=== PATIENT | female | born 1955 | race Caucasian/White ===

== ENCOUNTER → 2017-02-19 | Outpatient (CLI) | payer BC ==
--- NOTE | 2017-02-19 13:57 | MM ---
Reason for exam: screening (asymptomatic). Last mammogram was performed 1 year and 2 months ago. History: Patient is postmenopausal and had first child at age 36. Physical Findings: A clinical breast exam by your physician is recommended on an annual basis and results should be correlated with mammographic findings. MG 3D Screening Mammo W/Cad Bilateral CC and MLO view(s) were taken. Prior study comparison: December 12, 2015, left breast MG work up mamm w CAD LT. November 29, 2015, bilateral MG screening mammo w CAD. The breast tissue is heterogeneously dense. This may lower the sensitivity of mammography. There is no discrete abnormality. No significant changes when compared with prior studies. ASSESSMENT: Benign, BI-RAD 2 RECOMMENDATION: Routine screening mammogram of both breasts in 1 year.
--- NOTE | 2017-02-19 16:56 | BD ---
EXAMINATION TYPE: MG DEXA axial skeleton. DATE OF EXAM: 02/19/2017 CLINICAL HISTORY: 61-year-old female disorder of bone Height: 65.5 Weight: 222 FRAX RISK QUESTIONS: Alcohol (3 or more units per day): no Family History (Parent hip fracture): mother broke pelvis but may have been a complication of CA Glucocorticoids (More than 3mos): as needed-inhaler (Ex: prednisone, prednisolone, methylprednisolone, dexamethasone, and hydrocortisone). History of Fracture in Adulthood: no Secondary Osteoporosis: 1. Type 1 Diabetes: no 2. Hyperthyroidism: no 3. Menopause before 45: no 4. Malnutrition: no 5. Chronic liver disease: no Rheumatoid Arthritis: no, osteoarthritis Current Tobacco Use: yes RISK FACTORS HISTORY OF: Hip Fracture (Right/Left): no Spine Fracture: no History of Wrist Fracture: yes When: at about age 13 Surgery to Spine/Hip(right/left)/Wrist (right/left): no Family History of Osteoporosis: yes; mother & sister Active: yes Diet low in dairy products/other sources of calcium: no Postmenopausal woman: yes Take estrogen and/or progesterone medications: no Lost more than 2 inches in height since high school: no Frequent falls: no Poor Health: no Hyperparathyroidism: no Adrenal Insufficiency: no MEDICATIONS: Prednisone or other steroids: yes, as needed How lon-4 years on & off Thyroid Medications: no Osteoporosis Medications: no Additional Medications: blood pressure meds, cholesterol meds, meds for diabetes , glaucoma eye drops , Ventolin Additional History: type 2 diabetic, glaucoma EXAM MEASUREMENTS: Bone mineral densitometry was performed using the [employer] System. Bone mineral density as measured about the Lumbar spine is: ----- L1-L4(G/cm2): 1.092 T Score Values are as follows: ----- L2: -1.8 ----- L3: -0.9 ----- L4: 0.1 ----- L1-L4: -0.7 Bone mineral density has: Decreased -1.5% since study of: 06/09/2014 Bone mineral density about the R hip (g/cm2): 0.944 Bone mineral density about the L hip (g/cm2): 0.942 T Score values are as follows: -----R Neck: -0.7 -----L Neck: -0.7 -----R Total: -0.4 -----L Total: 0.0 Bone mineral density has: Decreased -2.7% since study of: 06/09/2014 IMPRESSION: Osteopenia (T Score between -2.5 and -1 as noted by T score values There is slightly increased risk of fracture and the patient may be considered for treatment. Re-Screen 2-5 years. NOTE: T-SCORE=SD OF THE YOUNG ADULT MEAN.
== END | disposition home or self-care (01) ==
LOC: RADMAMWWP 08:13
PROVIDERS: ATTEND Obstetrics & Gynecology
DX: Z12.31 Encounter for screening mammogram for malignant neoplasm of breast (principal); M85.80 Other specified disorders of bone density and structure, unspecified site
CPT/HCPCS: 77080; 77063; G0202

== ENCOUNTER → 2017-11-15 | Outpatient (CLI) | payer BC ==
--- NOTE | 2017-11-15 13:42 | MR ---
EXAMINATION TYPE: MR shoulder RT wo con DATE OF EXAM: 11/15/2017 COMPARISON: Outside right shoulder x-ray from yesterday. HISTORY: Right shoulder pain TECHNIQUE: Multiplanar, multisequence imaging of the right shoulder is performed without contrast. FINDINGS: Patient had claustrophobia and could not complete entire shoulder sequence for diagnostic e valuation. Long head of biceps is noted within bicipital groove. There is fairly moderate to large glenohumeral joint effusion. There is additional more prominent fluid anteriorly. Glenohumeral joint is preserved. There is subchondral cystic change in the superolateral humeral head. There is suspected increased s ignal and at least partial tear of the distal supraspinatus and infraspinatus tendons. Full-thickness tear of supraspinatus tendon most likely is present. There appears to be some mild muscular atrophy. There is mild to moderate AC joint space loss. IMPRESSION: As above, incomplete nondiagnostic study. Advise repeat study with sedation if necessary.
== END ==
LOC: RADMRIMAIN 12:36
PROVIDERS: ATTEND Orthopaedic Surgery
DX: M25.511 Pain in right shoulder (principal); F40.240 Claustrophobia; Z53.29 Procedure and treatment not carried out because of patient's decision for other reasons

== ENCOUNTER 2018-03-07 23:23 | Observation (INO) | payer BC ==
[2018-03-07] MEDS ORDERED: SODIUM CHLORIDE 0.9% 1,000 ML IV ONE (23:51)
[2018-03-07] MEDS ORDERED: MORPHINE SULFATE 4 MG/ML SYRINGE IVP STA (23:51)
[2018-03-07] MEDS ORDERED: SODIUM CHLORIDE 0.9% 1,000 ML IV STA (23:51)
--- NOTE | 2018-03-08 00:03 | ED ---
General Adult HPI - General Chief complaint: Abdominal Pain Stated complaint: Abdominal Pain Time Seen by Provider: 03/07/18 23:49 Source: patient, RN notes reviewed, old records reviewed Mode of arrival: ambulatory Limitations: no limitations - History of Present Illness Initial comments: 60-year-old female presenting for sudden onset left upper quadrant abdominal pain. Pain is sharp and severe tenderness 10. Began with cough. Patient has somewhat limited history secondary to extreme pain. Denies preceding vomiting or diarrhea. Denies fever or chills. Pain is been present for the past 30 minutes. - Related Data Home Medications Medication Instructions Recorded Confirmed Fenofibrate Nanocrystallized 145 mg PO DAILY 03/29/15 04/01/15 [Tricor] Ibuprofen [Motrin] 800 mg PO TID PRN 03/29/15 04/01/15 Metoprolol Tartrate 12.5 mg PO BID 03/29/15 04/01/15 Multivitamins, Thera [Theragran] 1 each PO DAILY 03/29/15 04/01/15 Rosuvastatin Calcium [Crestor] 40 mg PO HS 03/29/15 04/01/15 Valsartan/Hydrochlorothiazide 1 each PO 1000 03/29/15 04/01/15 [Diovan Hct 320-25 mg Tablet] Xalatan Eye Drop 1 drop BOTH EYES HS 03/29/15 04/01/15 metFORMIN HCL [Glucophage Xr] 2,000 mg PO 1000 03/29/15 04/01/15 Allergies Allergy/AdvReac Type Severity Reaction Status Date / Time ciprofloxacin [From Cipro] Allergy Rash/Hives Verified 03/07/18 23:28 ciprofloxacin HCl Allergy Rash/Hives Verified 03/07/18 23:28 [From Cipro] phenazopyridine HCl Allergy Rash/Hives Verified 03/07/18 23:28 [From Pyridium] stong pain medications Allergy Vomiting Uncoded 03/07/18 23:28 Review of Systems ROS Statement: Those systems with pertinent positive or pertinent negative responses have been documented in the HPI. ROS Other: All systems not noted in ROS Statement are negative. Past Medical History Past Medical History: Eye Disorder, Hyperlipidemia, Hypertension, Osteoarthritis (OA) Additional Past Medical History / Comment(s): glaucoma, migraines, chronic bronchitis, History of Any Multi-Drug Resistant Organisms: None Reported Past Surgical History: Orthopedic Surgery, Tonsillectomy, Tubal Ligation Additional Past Surgical History / Comment(s): kaitlynn foot surgery Past Anesthesia/Blood Transfusion Reactions: Motion Sickness Past Psychological History: Depression Smoking Status: Current every day smoker - Past Family History Mother Family Medical History: Cancer General Exam Limitations: no limitations General appearance: alert, in distress Head exam: Present: atraumatic, normocephalic Eye exam: Present: normal appearance, PERRL ENT exam: Present: normal exam Neck exam: Present: normal inspection. Absent: tenderness, meningismus Respiratory exam: Present: normal lung sounds bilaterally. Absent: respiratory distress, wheezes Cardiovascular Exam: Present: normal rhythm, tachycardia GI/Abdominal exam: Present: distended, tenderness, guarding, other (Tender mass left upper quadrant) Extremities exam: Present: normal inspection, normal capillary refill. Absent: pedal edema Neurological exam: Present: alert, oriented X3, CN II-XII intact. Absent: motor sensory deficit Skin exam: Present: warm, diaphoretic Course Vital Signs 03/07/18 03/08/18 23:24 00:26 Temperature 98.3 F Pulse Rate 150 H 112 H Respiratory 26 H 20 Rate Blood Pressure 171/100 166/65 O2 Sat by Pulse 98 94 L Oximetry - Reevaluation(s) Reevaluation #1: 03/08/18 00:01 Case discussed with surgery on-call Dr. Cantu Recommends awaiting computed tomography scan for further recommendations. 03/08/18 01:08 Case discussed with surgery on-call, recommended medical management, Reevaluation #2: 03/08/18 00:51 After pain medication patient's vital signs are improved, abdomen is reexamined , with the exception of tender left upper quadrant mass there is no rebound or guarding, abdomen is otherwise soft. EKG Findings - EKG Comments: EKG Findings:: EKG: Sinus tachycardia, possible left atrial enlargement, rate of 145, [place] interval 126, QRS duration 90, QTC 444 Medical Decision Making - Medical Decision Making 62-year-old female with severe abdominal pain and mass in the left upper quadrant. Initial suspicion is for incarcerated strangulated abdominal wall hernia. CT is obtained, this is negative for obstruction or anterior abdominal wall hernia, there is a 12 x 5 cm intramuscular hematoma. This is consistent with history. Patient's hemoglobin is stable. She is not anticoagulated. She does have significant pain even on reevaluation. She will be kept for pain management. Gen. surgery will be placed on consult. Patient will have repeat hemoglobin test in 6 hours. - Lab Data Result diagrams: 03/08/18 00:00 03/08/18 00:00 Lab Results 03/08/18 03/08/18 03/08/18 Range/Units 00:00 00:00 00:00 WBC 13.3 H (3.8-10.6) k/uL RBC 4.58 (3.80-5.40) m/uL Hgb 14.8 (11.4-16.0) gm/dL Hct 43.0 (34.0-46.0) % MCV 93.8 (80.0-100.0) fL MCH 32.2 (25.0-35.0) pg MCHC 34.4 (31.0-37.0) g/dL RDW 13.6 (11.5-15.5) % Plt Count 314 (150-450) k/uL PT 10.4 (9.0-12.0) sec INR 1.1 (<1.2) APTT 22.2 (22.0-30.0) sec Sodium 142 (137-145) mmol/L Potassium (3.5-5.1) mmol/L Chloride 103 (98-107) mmol/L Carbon Dioxide 25 (22-30) mmol/L Anion Gap 14 mmol/L BUN 25 H (7-17) mg/dL Creatinine 0.80 (0.52-1.04) mg/dL Est GFR (CKD-EPI)AfAm >90 (>60 ml/min/1.73 sqM) Est GFR (CKD-EPI)NonAf 80 (>60 ml/min/1.73 sqM) Glucose 146 H (74-99) mg/dL Calcium 10.5 H (8.4-10.2) mg/dL Total Bilirubin 0.5 (0.2-1.3) mg/dL AST 48 H (14-36) U/L ALT 47 (9-52) U/L Alkaline Phosphatase 41 (38-126) U/L Total Protein 7.6 (6.3-8.2) g/dL Albumin 4.9 (3.5-5.0) g/dL Amylase 109 (30-110) U/L Lipase 254 (23-300) U/L Blood Type Blood Type Recheck Antibody Screen Spec Expiration Date 03/08/18 Range/Units 00:00 WBC (3.8-10.6) k/uL RBC (3.80-5.40) m/uL Hgb (11.4-16.0) gm/dL Hct (34.0-46.0) % MCV (80.0-100.0) fL MCH (25.0-35.0) pg MCHC (31.0-37.0) g/dL RDW (11.5-15.5) % Plt Count (150-450) k/uL PT (9.0-12.0) sec INR (<1.2) APTT (22.0-30.0) sec Sodium (137-145) mmol/L Potassium (3.5-5.1) mmol/L Chloride (98-107) mmol/L Carbon Dioxide (22-30) mmol/L Anion Gap mmol/L BUN (7-17) mg/dL Creatinine (0.52-1.04) mg/dL Est GFR (CKD-EPI)AfAm (>60 ml/min/1.73 sqM) Est GFR (CKD-EPI)NonAf (>60 ml/min/1.73 sqM) Glucose (74-99) mg/dL Calcium (8.4-10.2) mg/dL Total Bilirubin (0.2-1.3) mg/dL AST (14-36) U/L ALT (9-52) U/L Alkaline Phosphatase (38-126) U/L Total Protein (6.3-8.2) g/dL Albumin (3.5-5.0) g/dL Amylase (30-110) U/L Lipase (23-300) U/L Blood Type A Positive Blood Type Recheck CABO Indicated Antibody Screen NEGATIVE Spec Expiration Date 03/11/2018 - 2300 Disposition Clinical Impression: Rectus sheath hematoma, Abdominal pain Disposition: ADMITTED IP TO THIS [facility] Referrals: Lenin Duran DO [Primary Care Provider] - 1-2 days Decision to Admit Reason: Admit from EC Decision Date: 03/08/18 Decision Time: 01:11
[2018-03-08 00:09] LABS: HGB 14.8 gm/dL (11.4-16.0); MCH 32.2 pg (25.0-35.0); MCHC 34.4 g/dL (31.0-37.0); MCV 93.8 fL (80.0-100.0); Mean Platelet Volume 7.7; Platelet Count 314 k/uL (150-450); RBC 4.58 m/uL (3.80-5.40); RDW 13.6 % (11.5-15.5); WBC 13.3 k/uL (3.8-10.6)
[2018-03-08 00:21] LABS: INR 1.1 (<1.2); Partial Thromboplastin Time 22.2 sec (22.0-30.0); Prothrombin Time 10.4 sec (9.0-12.0)
--- NOTE | 2018-03-08 00:22 | XR ---
EXAMINATION TYPE: XR abdomen acute w cxr DATE OF EXAM: 03/08/2018 COMPARISON: NONE HISTORY: Abdominal pain TECHNIQUE: Chest x-ray and supine and upright abdomen FINDINGS: There is no heart failure nor confluent pneumonic infiltrate. There is poor inspiration. There is no sign of intestinal obstruction or pneumoperitoneum. Fecal pattern is normal. Lung bases are clear. Th ere are no pathologic calcifications over the kidneys. IMPRESSION: Nonacute abdomen.
[2018-03-08 00:29] LABS: AST 48 U/L (14-36); Albumin 4.9 g/dL (3.5-5.0); Anion Gap 14 mmol/L; Blood Urea Nitrogen 25 mg/dL (7-17); Calcium 10.5 mg/dL (8.4-10.2); Carbon Dioxide 25 mmol/L (22-30); Chloride 103 mmol/L (98-107); Glucose 146 mg/dL (74-99); Sodium 142 mmol/L (137-145); Total Bilirubin 0.5 mg/dL (0.2-1.3); Total Protein 7.6 g/dL (6.3-8.2)
[2018-03-08 00:30] LABS: ALT 47 U/L (9-52); Alkaline Phosphatase 41 U/L (38-126); Amylase 109 U/L (30-110); Lipase 254 U/L (23-300)
--- NOTE | 2018-03-08 00:34 | CT ---
EXAMINATION TYPE: CT abdomen pelvis w con DATE OF EXAM: 03/08/2018 COMPARISON: None HISTORY: possible hernia strangulation CT DLP: 2444.70 mGycm Automated exposure control for dose reduction was used. TECHNIQUE: Helical acquisition of images was performed from the lung bases through the pelvis. CONTRAST: Performed without Oral Contrast and with IV Contrast, patient injected with 100 mL of Isovue 300. FINDINGS: Lung bases are clear. There is no pleural effusion. There is low-attenuation in the liver consistent with fatty infiltration. Bile ducts are not dilated. Spleen appears normal. There is no pancreatic ma ss. There is a 12 x 5 cm area of thickening of the anterior abdominal wall on the left side. This is cons istent with intramuscular hematoma. The length is 16 cm. There is no evidence of intraperitoneal hemorrhage. Gallbladder appears normal. There is no adrenal mass. Kidneys show satisfactory contrast opacification. There is no hydronephrosi s. There is no retroperitoneal adenopathy. There is no ascites. There is no intestinal wall thickenin g. There are no dilated loops. Bladder distends smoothly. There is no pelvic mass. Uterus is antevert ed. Lumbar spine is intact. Abdominal aorta is atheromatous. Appendix is not seen. There is no sign o f appendicitis. IMPRESSION: THICKENING OF THE ANTERIOR ABDOMINAL WALL CONSISTENT WITH ACUTE INTRAMUSCULAR HEMATOMA. FATTY INFILTR ATION OF THE LIVER. NO EVIDENCE OF A BOWEL OBSTRUCTION. SMALL UMBILICAL HERNIA CONTAINS FAT.
[2018-03-08] MEDS ORDERED: HYDROmorphone 0.5 MG/0.5 ML SYRINGE IVP STA (00:59)
[2018-03-08] MEDS ORDERED: SODIUM CHLORIDE 0.9% 500 ML IV ONE (00:59)
[2018-03-08] MEDS ORDERED: ONDANSETRON 4 MG/2 ML VIAL IVP PRN (01:06)
[2018-03-08] MEDS ORDERED: ACETAMINOPHEN TAB 325 MG TAB PO PRN (01:06)
[2018-03-08] MEDS ORDERED: NALOXONE 0.4 MG/ML 1 ML VIAL IV PRN (01:06)
[2018-03-08] MEDS ORDERED: HYDROmorphone 1 MG/ML 1 ML SYRINGE IVP PRN ×2 (01:06)
[2018-03-08 01:23] LABS: Band Neutrophils % 1 %; Lymphocytes # (M) 4.39 k/uL (1.0-4.8); Neutrophils % (M) 51 %; Nucleated Red Blood Cells 0 /100 WBC (0-0); Total Cells Counted 100
[2018-03-08 02:42] VITALS: BMI 41.7
[2018-03-08 07:37] LABS: Glucose,Whole Blood 178 mg/dL (75-99)
[2018-03-08] MEDS: PANTOPRAZOLE 40 MG/10 ML VIAL IVP SCH (08:09)
[2018-03-08] MEDS: metFORMIN 500 MG TAB PO SCH ×2 (08:12→21:52)
[2018-03-08] MEDS: METOPROLOL TARTRATE 12.5 MG TAB PO SCH ×2 (08:12→21:52)
[2018-03-08] MEDS: FENOFIBRATE 160 MG TAB PO SCH (08:13)
--- NOTE | 2018-03-08 09:07 | P.GSCN ---
History of Present Illness Consult date: 03/08/18 Reason for Consult: Umbilical hernia, rectus sheath hematoma History of present illness: This is a 62-year-old female who was admitted through the emergency room with complaints of severe abdominal pain. Patient has a chronic umbilical hernia. Patient's workup found have evidence of a rectus sheath hematoma. Patient states that she had a coughing spell prior to her abdominal pain. CAT scan performed shows evidence of rectus sheath hematoma. There is no evidence of bowel obstruction. Past Medical History Past Medical History: Eye Disorder, Hyperlipidemia, Hypertension, Osteoarthritis (OA) Additional Past Medical History / Comment(s): glaucoma, migraines, chronic bronchitis, History of Any Multi-Drug Resistant Organisms: None Reported Past Surgical History: Orthopedic Surgery, Tonsillectomy, Tubal Ligation Additional Past Surgical History / Comment(s): kaitlynn foot surgery Past Anesthesia/Blood Transfusion Reactions: Motion Sickness Past Psychological History: Depression Smoking Status: Current every day smoker Past Alcohol Use History: Occasional Past Drug Use History: None Reported - Past Family History Mother Family Medical History: Cancer Medications and Allergies Home Medications Medication Instructions Recorded Confirmed Type Fenofibrate Nanocrystallized 145 mg PO DAILY 03/29/15 04/01/15 History [Tricor] Ibuprofen [Motrin] 800 mg PO TID PRN 03/29/15 04/01/15 History Metoprolol Tartrate 12.5 mg PO BID 03/29/15 04/01/15 History Multivitamins, Thera [Theragran] 1 each PO DAILY 03/29/15 04/01/15 History Rosuvastatin Calcium [Crestor] 40 mg PO HS 03/29/15 04/01/15 History Valsartan/Hydrochlorothiazide 1 each PO 1000 03/29/15 04/01/15 History [Diovan Hct 320-25 mg Tablet] Xalatan Eye Drop 1 drop BOTH EYES HS 03/29/15 04/01/15 History metFORMIN HCL [Glucophage Xr] 2,000 mg PO 1000 03/29/15 04/01/15 History Allergies Allergy/AdvReac Type Severity Reaction Status Date / Time ciprofloxacin [From Cipro] Allergy Rash/Hives Verified 03/07/18 23:28 ciprofloxacin HCl Allergy Rash/Hives Verified 03/07/18 23:28 [From Cipro] phenazopyridine HCl Allergy Rash/Hives Verified 03/07/18 23:28 [From Pyridium] stong pain medications Allergy Vomiting Uncoded 03/07/18 23:28 Surgical - Exam Vital Signs Temp Pulse Resp BP Pulse Ox 98.3 F 150 H 26 H 171/100 98 03/07/18 23:24 03/07/18 23:24 03/07/18 23:24 03/07/18 23:24 03/07/18 23:24 - General well developed, no distress - Eyes PERRL - ENT normal pinna - Neck no masses - Respiratory normal expansion - Cardiovascular Rhythm: regular - Abdomen Mild abdominal tenderness. There is a reducible umbilical hernia. Abdomen: soft Results - Labs 03/08/18 00:00 03/08/18 00:00 Abnormal Lab Results - Last 24 Hours (Table) 03/08/18 03/08/18 03/08/18 Range/Units 00:00 00:00 07:32 WBC 13.3 H (3.8-10.6) k/uL Monocytes # (Manual) 1.60 H (0-1.0) k/uL BUN 25 H (7-17) mg/dL Glucose 146 H (74-99) mg/dL POC Glucose (mg/dL) 178 H (75-99) mg/dL Calcium 10.5 H (8.4-10.2) mg/dL AST 48 H (14-36) U/L Diabetes panel 03/08/18 Range/Units 00:00 Sodium 142 (137-145) mmol/L Potassium (3.5-5.1) mmol/L Chloride 103 (98-107) mmol/L Carbon Dioxide 25 (22-30) mmol/L BUN 25 H (7-17) mg/dL Creatinine 0.80 (0.52-1.04) mg/dL Glucose 146 H (74-99) mg/dL Calcium 10.5 H (8.4-10.2) mg/dL AST 48 H (14-36) U/L ALT 47 (9-52) U/L Alkaline Phosphatase 41 (38-126) U/L Total Protein 7.6 (6.3-8.2) g/dL Albumin 4.9 (3.5-5.0) g/dL Calcium panel 03/08/18 Range/Units 00:00 Calcium 10.5 H (8.4-10.2) mg/dL Albumin 4.9 (3.5-5.0) g/dL Pituitary panel 03/08/18 Range/Units 00:00 Sodium 142 (137-145) mmol/L Potassium (3.5-5.1) mmol/L Chloride 103 (98-107) mmol/L Carbon Dioxide 25 (22-30) mmol/L BUN 25 H (7-17) mg/dL Creatinine 0.80 (0.52-1.04) mg/dL Glucose 146 H (74-99) mg/dL Calcium 10.5 H (8.4-10.2) mg/dL Adrenal panel 03/08/18 Range/Units 00:00 Sodium 142 (137-145) mmol/L Potassium (3.5-5.1) mmol/L Chloride 103 (98-107) mmol/L Carbon Dioxide 25 (22-30) mmol/L BUN 25 H (7-17) mg/dL Creatinine 0.80 (0.52-1.04) mg/dL Glucose 146 H (74-99) mg/dL Calcium 10.5 H (8.4-10.2) mg/dL Total Bilirubin 0.5 (0.2-1.3) mg/dL AST 48 H (14-36) U/L ALT 47 (9-52) U/L Alkaline Phosphatase 41 (38-126) U/L Total Protein 7.6 (6.3-8.2) g/dL Albumin 4.9 (3.5-5.0) g/dL Assessment and Plan Assessment: Abdominal wall/rectus sheath hematoma. Patient will be medically managed. Her umbilical hernia will be repaired as an outpatient electively.
[2018-03-08 11:48] LABS: Glucose,Whole Blood 131 mg/dL (75-99)
[2018-03-08 12:42] LABS: Hemoglobin A1C 7.4 % (4.0-6.0)
[2018-03-08] MEDS: INSULIN ASPART 100 UNIT/ML 1 ML 10 ML VIAL SQ SCH ×3 (13:09→21:24)
[2018-03-08] MEDS: ALBUTEROL NEBULIZED 2.5 MG/3 ML INHALATION SCH ×2 (15:45→19:30)
[2018-03-08] MEDS: guaiFENesin-DM 100-10MG/5ML 10 ML CUP PO PRN (15:47)
[2018-03-08] MEDS: SODIUM CHLORIDE 0.9% 1,000 ML IV SCH (15:48)
[2018-03-08 16:01] LABS: Basophils # (A) 0.1 k/uL (0-0.2); Basophils % (A) 0 %; Eosinophils # (A) 0.2 k/uL (0-0.7); Eosinophils % (A) 2 %; Lymphocytes # (A) 2.3 k/uL (1.0-4.8); Lymphocytes % (A) 22 %; MCH 31.8 pg (25.0-35.0); MCHC 33.4 g/dL (31.0-37.0); MCV 95.2 fL (80.0-100.0); Mean Platelet Volume 7.5; Monocytes # (A) 0.5 k/uL (0-1.0); Monocytes % (A) 5 %; Neutrophils # (A) 7.4 k/uL (1.3-7.7); Neutrophils % (A) 69 %; Platelet Count 218 k/uL (150-450); RBC 3.68 m/uL (3.80-5.40); RDW 13.8 % (11.5-15.5); WBC 10.6 k/uL (3.8-10.6)
[2018-03-08 16:03] LABS: HGB 11.7 gm/dL (11.4-16.0)
[2018-03-08 16:57] LABS: Glucose,Whole Blood 143 mg/dL (75-99)
--- NOTE | 2018-03-08 18:40 | CONS ---
CONSULTATION DATE OF SERVICE: 03/08/2018. IDENTIFYING DATA: This patient is a 62-year-old who was admitted to the hospital with a rectus sheath hematoma. I am asked to evaluate for suicidal ideation. HISTORY OF PRESENT ILLNESS: The patient presented with acute abdominal pain after having severe coughing. She was evaluated in the emergency room and by Surgery. She has an existing abdominal hernia and now was found to have a rectus sheath hematoma discovered on CT scan. Upon presentation, the patient made statements that seem to be suicidal in nature. She states that she has no suicidal ideation, intent, or plan. She states that since the of her , she has struggled with some grief, but feels it has gotten much better over time. She endorses no tearfulness or crying spells. Sleep has been stable. Appetite stable. She does socialize with friends and finds those activities enjoyable. She agrees that her abdominal pain was severe and did alter her responses and how she felt at the time. She is reporting no auditory or visual hallucinations. She is endorsing no homicidal ideation, intent, or plan. She endorses no specific delusions. There is no evidence of any hypomanic or manic episodes in the past. PAST PSYCHIATRIC HISTORY: She has had 2 inpatient psychiatric admissions, both were 15-20 years ago. No history of suicide attempts. She does not currently work with an individual therapist or psychiatrist. She has not been placed on any psychotropic medications that she recalls. She states she does not need one. PAST MEDICAL HISTORY: As noted. Other comorbidities include hypertension, hyperlipidemia, osteoarthritis, migraines, chronic bronchitis. ALLERGIES: Ciprofloxacin, phenazopyridine. CHEMICAL DEPENDENCY HISTORY: She states she will use alcohol 1-2 drinks once or twice a week. She does use marijuana. SOCIAL HISTORY: The patient is 62 years old. She is retiring from post office work. She resides alone. She does have a support system in place. MENTAL STATUS EXAM: The patient is an overweight female appearing her stated age. She is pleasant, cooperative on approach. She appropriately attends to questions. She has spontaneous speech that is nonpressured. She reports that her mood is better. She is endorsing no hopeless thinking and she endorses no suicidal or homicidal ideation, intent, or plan. She indicates that the abdominal pain was skewing her answers when she was asked about how her mood was and how she felt in terms of suicidal ideation. She is reporting no hallucinations or specific delusions and there is no observed evidence of psychosis. She does not appear hypomanic or manic. She demonstrates no verbal or physical aggressiveness. She demonstrates no abnormal involuntary movements. Affect is appropriately expressive including appropriate smiling and laughter. She is fully oriented to person, place, and date. IMPRESSION: 1. Depression, not otherwise specified, rule out history of major depressive disorder, ongoing bereavement. 2. Medical comorbidities include recent rectus sheath hematoma, abdominal hernia, hypertension, hyperlipidemia, osteoarthritis, migraines, chronic bronchitis. PLAN: The patient does not require inpatient psychiatric hospitalization. I will discontinue the safety security officer as it is unnecessary. She has been cooperative with medical care. She understands treatment that she is receiving. It was recommended that she work with an outpatient therapist should she need to further process her bereavement. She does not feel that she needs a psychotropic medication for depression or anxiety at this time. MMODL / IJN: [id number] /
[2018-03-08 19:57] LABS: Glucose,Whole Blood 194 mg/dL (75-99)
[2018-03-08] MEDS: ATORVASTATIN 80 MG TAB PO SCH (21:52)
[2018-03-09 06:55] LABS: Glucose,Whole Blood 148 mg/dL (75-99)
[2018-03-09] MEDS: ALBUTEROL NEBULIZED 2.5 MG/3 ML INHALATION SCH ×4 (06:58→20:02)
[2018-03-09] MEDS: PANTOPRAZOLE 40 MG/10 ML VIAL IVP SCH (08:21)
[2018-03-09] MEDS: guaiFENesin-DM 100-10MG/5ML 10 ML CUP PO PRN (08:21)
[2018-03-09] MEDS: FENOFIBRATE 160 MG TAB PO SCH (08:22)
[2018-03-09] MEDS: METOPROLOL TARTRATE 12.5 MG TAB PO SCH ×2 (08:22→21:35)
[2018-03-09] MEDS: metFORMIN 500 MG TAB PO SCH ×2 (08:22→21:35)
[2018-03-09 08:23] LABS: Basophils # (A) 0.1 k/uL (0-0.2); Basophils % (A) 1 %; Eosinophils # (A) 0.2 k/uL (0-0.7); Eosinophils % (A) 3 %; HCT 34.5 % (34.0-46.0); HGB 11.5 gm/dL (11.4-16.0); Lymphocytes # (A) 2.9 k/uL (1.0-4.8); Lymphocytes % (A) 33 %; MCH 31.9 pg (25.0-35.0); MCHC 33.4 g/dL (31.0-37.0); MCV 95.6 fL (80.0-100.0); Mean Platelet Volume 7.4; Monocytes # (A) 0.4 k/uL (0-1.0); Monocytes % (A) 4 %; Neutrophils % (A) 58 %; Platelet Count 236 k/uL (150-450); RBC 3.61 m/uL (3.80-5.40); RDW 13.5 % (11.5-15.5); WBC 8.7 k/uL (3.8-10.6)
[2018-03-09] MEDS: INSULIN ASPART 100 UNIT/ML 1 ML 10 ML VIAL SQ SCH ×4 (08:33→21:33)
[2018-03-09 08:36] LABS: Anion Gap 7 mmol/L; Blood Urea Nitrogen 10 mg/dL (7-17); Calcium 9.5 mg/dL (8.4-10.2); Carbon Dioxide 28 mmol/L (22-30); Chloride 105 mmol/L (98-107); Glucose 143 mg/dL (74-99); Potassium 3.8 mmol/L (3.5-5.1); Sodium 140 mmol/L (137-145)
--- NOTE | 2018-03-09 10:29 | P.PN ---
Progress Note - Text Progress Note Date: 03/09/18 Patient is resting comfortably in bed. Her pain is improved. On exam her vital signs are stable. Her abdomen soft. The umbilical hernia is reducible. Abdominal pain secondary to rectus sheath hematoma. Patient will continue conservative therapy. She'll follow-up as an outpatient for repair of her umbilical hernia.
[2018-03-09 12:03] LABS: Glucose,Whole Blood 167 mg/dL (75-99)
--- NOTE | 2018-03-09 13:52 | P.PN ---
Subjective Progress Note Date: 03/09/18 Principal diagnosis: Abdominal wall/rectus sheath hematoma Mild renal injury/dehydration Hypercalcemia This is a 62-year-old female who was admitted through the emergency room with complaints of severe abdominal pain. Patient has a chronic umbilical hernia. Patient's workup found have evidence of a rectus sheath hematoma. Patient states that she had a coughing spell prior to her abdominal pain. CAT scan performed shows evidence of rectus sheath hematoma. There is no evidence of bowel obstruction. 03/09/2018 Patient is seen and evaluated in the room at bedside; claims it somewhat easier for her to move in the bed and tired when she tries to get out of bed; hematoma site is still painful but is slightly softer than yesterday; pain is somewhat improved compared to yesterday Patient is being treated conservatively for rectus sheath hematoma; surgical service is following and is recommending repair for her umbilical hernia repair as an outpatient Patient's hemoglobin remains stable at baseline; we will continue to monitor H&H We will plan to start patient on an oral diet and advance as tolerated Objective - Vital Signs Vital signs: Vital Signs Temp 98.5 F 03/09/18 07:00 Pulse 92 03/09/18 11:13 Resp 18 03/09/18 07:00 BP 141/81 03/09/18 07:00 Pulse Ox 96 03/09/18 07:01 Intake & Output 03/08/18 03/09/18 03/09/18 18:59 06:59 18:59 Intake Total 840 1200 300 Balance 840 1200 300 Intake: IV 600 1200 Sodium Chloride 0.9% 1, 600 1200 000 ml @ 75 mls/hr IV . [id number] STA Rx#:[id number] Oral 240 300 Other: # Voids 3 - Exam - Constitutional General appearance: Present: average body habitus, cooperative, no acute distress - EENT Eyes: Present: anicteric sclerae, EOMI, PERRLA, normal appearance ENT: Present: hearing grossly normal, normal oropharynx Ears: bilateral: normal - Neck Neck: Present: normal ROM. Absent: lymphadenopathy, rigidity, thyromegaly Carotids: negative: bruit present Thyroid: bilateral: normal size, negative: enlarged, nodule - Respiratory Respiratory: bilateral: CTA, negative: rales, rhonchi, wheezing - Cardiovascular Rhythm: regular Heart sounds: normal: S1, S2 Abnormal Heart Sounds: Absent: systolic murmur, diastolic murmur - Gastrointestinal General gastrointestinal: Present: normal bowel sounds, soft. Absent: distended , organomegaly; tenderness with ecchymosis left upper quadrant - Genitourinary Genitourinary Comment(s): deferred - Integumentary Integumentary: Present: normal turgor. Absent: jaundiced, rash, ulcer - Neurologic Neurologic: Present: CNII-XII intact. Absent: focal deficits - Musculoskeletal Musculoskeletal: Present: gait normal, strength equal bilaterally - Psychiatric Psychiatric: Present: A&O x's 3, appropriate affect, intact judgment & insight - Labs CBC & Chem 7: 03/09/18 07:57 03/09/18 07:57 Labs: Abnormal Lab Results - Last 24 Hours (Table) 03/08/18 03/08/18 03/08/18 Range/Units 00:00 15:32 16:52 RBC 3.68 L (3.80-5.40) m/uL Glucose (74-99) mg/dL POC Glucose (mg/dL) 143 H (75-99) mg/dL Hemoglobin A1c 7.4 H (4.0-6.0) % 03/08/18 03/09/18 03/09/18 Range/Units 19:53 06:48 07:57 RBC 3.61 L (3.80-5.40) m/uL Glucose (74-99) mg/dL POC Glucose (mg/dL) 194 H 148 H (75-99) mg/dL Hemoglobin A1c (4.0-6.0) % 03/09/18 03/09/18 Range/Units 07:57 11:53 RBC (3.80-5.40) m/uL Glucose 143 H (74-99) mg/dL POC Glucose (mg/dL) 167 H (75-99) mg/dL Hemoglobin A1c (4.0-6.0) % Assessment and Plan Assessment: 1. Abdominal wall/rectus sheath hematoma - Patient is admitted for close observation and surgical evaluation - Patient has been recommended to be monitored closely - We will monitor H&H closely and type crossmatch and transfuse if bleeding continues and hemoglobin drops below 8 - No surgical intervention is recommended by surgery 2. Mild renal injury/ dehydration - Continue with IV fluid hydration with normal saline at 100 mL an hour - Monitor strict KIRSTEN's and renal function along with electrolytes - Avoid nephrotoxins and hypotension 3. Hypercalcemia possibly secondary to dehydration - Patient remains on IV fluids; normal saline at 100 mL an hour - We will monitor calcium levels closely 4. Hyperglycemia without acidosis - We will hold home metformin and keep patient on Accu-Cheks with insulin sliding scale 5. Leukocytosis; reactive versus infection - We will continue to monitor CBC closely and initiate sepsis workup if continues to trend up 6. Hypertension; uncontrolled ; patient remains on Diovan 320/25 mg daily along with metoprolol 20.5 mg twice a day - We will continue to monitor blood pressure closely and adjust medications if needed 7. Hyperlipidemia; continue with home dose of TriCor 145 mg daily along with Crestor 40 mg daily at bedtime 8. DVT prophylaxis; SCDs only secondary to intestinal bleeding CODE STATUS; full code Time with Patient: Greater than 30
[2018-03-09] MEDS: SODIUM CHLORIDE 0.9% 1,000 ML IV SCH ×2 (16:24→21:35)
[2018-03-09 17:01] LABS: Glucose,Whole Blood 132 mg/dL (75-99)
[2018-03-09 20:08] LABS: Glucose,Whole Blood 181 mg/dL (75-99)
[2018-03-09] MEDS: ATORVASTATIN 80 MG TAB PO SCH (21:35)
[2018-03-10 06:57] LABS: Glucose,Whole Blood 138 mg/dL (75-99)
[2018-03-10 07:43] VITALS: BP 153/83; RESP 14; TEMP 98.6
[2018-03-10] MEDS: SODIUM CHLORIDE 0.9% 1,000 ML IV SCH (07:45)
[2018-03-10] MEDS: INSULIN ASPART 100 UNIT/ML 1 ML 10 ML VIAL SQ SCH ×2 (07:45→12:06)
[2018-03-10] MEDS: METOPROLOL TARTRATE 12.5 MG TAB PO SCH (07:57)
[2018-03-10] MEDS: PANTOPRAZOLE 40 MG/10 ML VIAL IVP SCH (07:57)
[2018-03-10] MEDS: FENOFIBRATE 160 MG TAB PO SCH (07:58)
[2018-03-10] MEDS: metFORMIN 500 MG TAB PO SCH (07:58)
[2018-03-10] MEDS: ALBUTEROL NEBULIZED 2.5 MG/3 ML INHALATION SCH ×2 (08:11→11:21)
[2018-03-10 08:44] LABS: Basophils % (A) 1 %; Eosinophils # (A) 0.2 k/uL (0-0.7); Eosinophils % (A) 3 %; HCT 32.5 % (34.0-46.0); HGB 10.8 gm/dL (11.4-16.0); Lymphocytes # (A) 2.5 k/uL (1.0-4.8); Lymphocytes % (A) 36 %; MCH 31.8 pg (25.0-35.0); MCHC 33.3 g/dL (31.0-37.0); MCV 95.5 fL (80.0-100.0); Mean Platelet Volume 7.4; Monocytes # (A) 0.3 k/uL (0-1.0); Monocytes % (A) 4 %; Neutrophils # (A) 3.9 k/uL (1.3-7.7); Neutrophils % (A) 56 %; Platelet Count 216 k/uL (150-450); RDW 13.7 % (11.5-15.5)
[2018-03-10 08:58] LABS: Anion Gap 7 mmol/L; Blood Urea Nitrogen 8 mg/dL (7-17); Calcium 9.2 mg/dL (8.4-10.2); Carbon Dioxide 25 mmol/L (22-30); Chloride 106 mmol/L (98-107); Glucose 187 mg/dL (74-99); Potassium 3.9 mmol/L (3.5-5.1); Sodium 138 mmol/L (137-145)
[2018-03-10 11:18] LABS: Glucose,Whole Blood 139 mg/dL (75-99)
[2018-03-10 11:37] VITALS: PULSE 92
--- NOTE | 2018-03-11 01:02 | P.DS ---
Providers Date of admission: 03/08/18 01:06 Expected date of discharge: 03/10/18 Attending physician: Harpreet Bradley Consults: 03/08/18 01:07 Consult Physician Routine Consulting Provider: Jabari Cantu Consult Reason/Comments: Abdominal wall hematoma Do you want consulting provider notified?: Yes 03/08/18 06:52 Consult Physician Urgent Consulting Provider: Annita Natarajan Consult Reason/Comments: suicidal ideation Do you want consulting provider notified?: Yes Primary care physician: Lenin Duran Hospital Course: Discharge diagnosis 1. Abdominal wall/rectus sheath hematoma - Patient is admitted for close observation and surgical evaluation - Improved with conservative management. Tenderness improved as well. - No surgical intervention is recommended by surgery 2. Mild renal injury/ dehydration - Continued with IV fluid hydration with normal saline at 100 mL an hour - Monitor strict KIRSTEN's and renal function along with electrolytes - Avoid nephrotoxins and hypotension 3. Hypercalcemia possibly secondary to dehydration - Patient remains on IV fluids; normal saline at 100 mL an hour - Calcium level normalized now. 4. Hyperglycemia without acidosis - patient on Accu-Cheks with insulin sliding scale and started back on metformin upon discharge. 5. Leukocytosis; reactive versus infection. Resolving now 6. Hypertension; uncontrolled ; patient remains on Diovan 320/25 mg daily along with metoprolol 20.5 mg twice a day - Blood pressure is fairly controlled now. 7. Hyperlipidemia; continue with home dose of TriCor 145 mg daily along with Crestor 40 mg daily at bedtime 8. DVT prophylaxis; SCDs only secondary to intestinal bleeding 9 morbid obesity with BMI 41.7 CODE STATUS; full code Hospital course This is a 62-year-old female who was admitted through the emergency room with complaints of severe abdominal pain. Patient has a chronic umbilical hernia. Patient's workup found have evidence of a rectus sheath hematoma. Patient states that she had a coughing spell prior to her abdominal pain. CAT scan performed shows evidence of rectus sheath hematoma. There is no evidence of bowel obstruction. 03/09/2018 Patient is seen and evaluated in the room at bedside; claims it somewhat easier for her to move in the bed and tired when she tries to get out of bed; hematoma site is still painful but is slightly softer than yesterday; pain is somewhat improved compared to yesterday Patient is being treated conservatively for rectus sheath hematoma; surgical service is following and is recommending repair for her umbilical hernia repair as an outpatient Patient's hemoglobin remains stable at baseline; we will continue to monitor H&H plan to start patient on an oral diet and advance as tolerated 03/10/2018 Patient denied any complaints of chest pain or shortness of breath. Abdominal wall hematoma is much improved and bruising is still present but much improved compared to admission. Otherwise patient is tolerating oral diet. Pain is well controlled. Patient was recommended to follow surgery for umbilical hernia repair. Otherwise patient is stable to be discharged home. Tolerating oral diet. Discharge physical examination PHYSICAL EXAMINATION: Patient is lying in the bed comfortably, no acute distress, awake alert and oriented.. HEENT: Normocephalic. Neck is supple. Pupils reactive. Nostrils clear. Oral cavity is moist. Ears reveal no drainage. Neck reveals no JVD, carotid bruits, or thyromegaly. CHEST EXAMINATION: Trachea is central. Symmetrical expansion. Lung mcelroy clear to auscultation and percussion. CARDIAC: Normal S1, S2 with no gallops. No murmurs ABDOMEN: Soft. Ecchymosis or abdominal wall with mild tenderness. No fluid collection noted. Bowel sounds normal. No organomegaly. No abdominal bruits. Extremities: reveal no edema. No clubbing or cyanosis Neurologically awake, alert, oriented x3 with well-coordinated movements. No focal deficits noted Skin: No rash or skin lesions. Psychiatric: Coperative. Nonsuicidal Musculoskeletal: No joint swelling or deformity. Normal range of motion. Vital Signs - 24 hr 03/10/18 03/10/18 03/10/18 07:00 08:11 08:22 Temperature 98.6 F Pulse Rate 88 89 Pulse Rate [ 96 Pulse Oximetery ] Respiratory 14 Rate Blood Pressure 153/83 [Right Arm] O2 Sat by Pulse 99 Oximetry 03/10/18 03/10/18 11:21 11:31 Temperature Pulse Rate 90 92 Pulse Rate [ Pulse Oximetery ] Respiratory Rate Blood Pressure [Right Arm] O2 Sat by Pulse Oximetry Patient Condition at Discharge: Good Plan - Discharge Summary Discharge Rx Participant: No New Discharge Prescriptions: Continue Metoprolol Tartrate 12.5 mg PO BID Valsartan/Hydrochlorothiazide [Diovan Hct 320-25 mg Tablet] 1 tab PO DAILY Fenofibrate Nanocrystallized [Tricor] 145 mg PO DAILY Rosuvastatin [Crestor] 20 mg PO HS Omeprazole 40 mg PO DAILY sitaGLIPtin [Januvia] 100 mg PO DAILY metFORMIN HCL 1,000 mg PO DAILY Latanoprost/Pf [Latanoprost 0.005% Eye Drop] 1 drop BOTH EYES HS Albuterol Inhaler [Ventolin Hfa Inhaler] 2 puff INHALATION RT-Q6H PRN PRN Reason: Shortness Of Breath Discharge Medication List Fenofibrate Nanocrystallized [Tricor] 145 mg PO DAILY 03/29/15 [History] Metoprolol Tartrate 12.5 mg PO BID 03/29/15 [History] Valsartan/Hydrochlorothiazide [Diovan Hct 320-25 mg Tablet] 1 tab PO DAILY 03/29 [History] Albuterol Inhaler [Ventolin Hfa Inhaler] 2 puff INHALATION RT-Q6H PRN 03/08/18 [ History] Latanoprost/Pf [Latanoprost 0.005% Eye Drop] 1 drop BOTH EYES HS 03/08/18 [ History] Omeprazole 40 mg PO DAILY 03/08/18 [History] Rosuvastatin [Crestor] 20 mg PO HS 03/08/18 [History] metFORMIN HCL 1,000 mg PO DAILY 03/08/18 [History] sitaGLIPtin [Januvia] 100 mg PO DAILY 03/08/18 [History] Follow up Appointment(s)/Referral(s): Lenin Duran DO [Primary Care Provider] - 1-2 days Jabari Cantu MD [STAFF PHYSICIAN] - 03/18/18 2:45 pm Patient Instructions/Handouts: Umbilical Hernia (DC), Acute Abdominal Pain (DC) Discharge Disposition: HOME SELF-CARE
== END 2018-03-10 14:36 | disposition home or self-care (01) ==
LOC: EC 23:23 → 3SUR 03-08 01:06
PROVIDERS: ADMIT Hospitalist; ATTEND Hospitalist
DX: S30.1XXA Contusion of abdominal wall, initial encounter (principal); K42.9 Umbilical hernia without obstruction or gangrene; I10 Essential (primary) hypertension; E86.0 Dehydration; F32.9 Major depressive disorder, single episode, unspecified; N17.9 Acute kidney failure, unspecified; J42 Unspecified chronic bronchitis; E78.5 Hyperlipidemia, unspecified; M19.90 Unspecified osteoarthritis, unspecified site; H40.9 Unspecified glaucoma; G43.909 Migraine, unspecified, not intractable, without status migrainosus; E83.52 Hypercalcemia; D72.829 Elevated white blood cell count, unspecified; R73.9 Hyperglycemia, unspecified; F17.200 Nicotine dependence, unspecified, uncomplicated; F12.929 Cannabis use, unspecified with intoxication, unspecified; E66.01 Morbid (severe) obesity due to excess calories; Z68.41 Body mass index [BMI] 40.0-44.9, adult; Z79.84 Long term (current) use of oral hypoglycemic drugs; X50.9XXA Other and unspecified overexertion or strenuous movements or postures, initial encounter; Z79.899 Other long term (current) drug therapy; Z80.9 Family history of malignant neoplasm, unspecified
CPT/HCPCS: 99285 ×2; 96374 ×2; 96375 ×3; 96361 ×4; 96376 ×2; 36415; 94640 ×6; 94760 ×2; 86900; 86901; 80053; 80048 ×2; 82150; 83690; 85025 ×3; 85610; 85730; 86850; 83036; 74022; 74177; G0378 ×3; J2270; J2405; C9113 ×3; J1170; Q9967

== ENCOUNTER → 2018-04-11 | Outpatient (CLI) | payer BC ==
--- NOTE | 2018-04-11 15:34 | XR ---
EXAMINATION TYPE: XR chest 2V DATE OF EXAM: 04/11/2018 COMPARISON: None INDICATION: Abnormal EKG TECHNIQUE: Frontal and lateral views of the chest are obtained. FINDINGS: The heart size is normal. The pulmonary vasculature is normal. The lungs are clear. IMPRESSION: 1. No acute pulmonary process.
== END ==
LOC: RADXRMAIN 15:07
PROVIDERS: ATTEND Family Medicine
DX: J44.9 Chronic obstructive pulmonary disease, unspecified (principal)
CPT/HCPCS: 71046

== ENCOUNTER → 2019-03-17 | Outpatient (CLI) | payer BC ==
--- NOTE | 2019-03-17 15:09 | XR ---
EXAMINATION TYPE: XR elbow complete RT DATE OF EXAM: 03/17/2019 CLINICAL HISTORY: Lump right elbow increasing in size over last one year. TECHNIQUE: Frontal, lateral and oblique images of the right elbow are obtained. COMPARISON: None FINDINGS: There is no acute fracture/dislocation evident in the right elbow. No abnormal fat pad si gns are seen. Moderate spurring of the ulnohumeral articulation is present. Dorsal subcutaneous calc ifications superficial to the olecranon are present. IMPRESSION: As above.
== END ==
LOC: RADXRMAIN 14:40
PROVIDERS: ATTEND Family Medicine
DX: M25.821 Other specified joint disorders, right elbow (principal)

== ENCOUNTER → 2019-05-04 | Outpatient (CLI) | payer BC ==
--- NOTE | 2019-05-04 15:52 | BD ---
EXAMINATION TYPE: Axial Bone Density DATE OF EXAM: 05/04/2019 COMPARISON: 02.19.2017 CLINICAL HISTORY: 63 YR OLD FEMALE....ICD-10 CODE: M89.9 DISORDER OF BONE Height: 64.4 Weight: 225 FRAX RISK QUESTIONS: Family History (Parent hip fracture): YES Glucocorticoids (More than 3mos): YES (Ex: prednisone, prednisolone, methylprednisolone, dexamethasone, and hydrocortisone). Current Tobacco Use: YES RISK FACTORS HISTORY OF: History of Wrist Fracture: YES, LT, < 50 YRS OLD Family History of Osteoporosis: YES, SISTER, MOTHER, WITH HIP FX Diet low in dairy products/other sources of calcium: YES A BIT LOW Postmenopausal woman: YES AT 56 YRS OLD, NO HORMONES Lost more than 2 inches in height since high school: YES Frequent falls: USING A WALKING STICK Hyperparathyroidism: NO Adrenal Insufficiency: NO MEDICATIONS: Prednisone or other steroids: VENTOLIN, COPD, FOR YRS NOW Additional Medications: BP MEDS, ORAL/INJECTABLE DIABETIC MEDS..NON INSULIN, STATIN FOR CHOLESTEROL, Additional History: DIABETIC, HYPERTENSION, CHOLESTEROL EXAM MEASUREMENTS: Bone mineral densitometry was performed using the [employer] System. Bone mineral density as measured about the Lumbar spine is: ----- L1-L4(G/cm2): 1.159 T Score Values are as follows: ----- L1: 0.0 ----- L2: -1.2 ----- L3: -0.6 ----- L4: 0.7 ----- L1-L4: -0.2 Bone mineral density has: Increased 5.4% since study of: 02.19.2017 Bone mineral density about the R hip (g/cm2): 0.927 Bone mineral density about the L hip (g/cm2): 0.948 T Score values are as follows: -----R Neck: -0.8 -----L Neck: -1.0 -----R Total: -0.6 -----L Total: -0.5 Bone mineral density has: Decreased -4.9% since study of: 02.19.2017 FRAX%s: THERE IS A 20.8% CHANCE FOR A MAJOR OSTEOPOROTIC FX AND A 1.4% FOR HIP.....PROBABILITY FOR FX IN 10 YRS TIME IMPRESSION: Normal (Values between +1 and -1 indicate normal bone mass). Consider repeating this study in 5 year s or sooner if there is some new clinical indication. NOTE: T-SCORE=SD OF THE YOUNG ADULT MEAN.
--- NOTE | 2019-05-05 10:22 | MM ---
Reason for exam: screening (asymptomatic). Last mammogram was performed 2 years and 2 months ago. History: Patient is postmenopausal and had first child at age 36. Physical Findings: A clinical breast exam by your physician is recommended on an annual basis and results should be correlated with mammographic findings. MG 3D Screening Mammo W/Cad Bilateral CC and MLO view(s) were taken. Prior study comparison: February 19, 2017, bilateral MG 3d screening mammo w/cad. December 12, 2015, left breast MG work up mamm w CAD LT. The breast tissue is heterogeneously dense. This may lower the sensitivity of mammography. Benign appearing calcifications in the right breast. No suspicious abnormality. No significant changes when compared with prior studies. ASSESSMENT: Benign, BI-RAD 2 RECOMMENDATION: Routine screening mammogram of both breasts in 1 year.
== END | disposition home or self-care (01) ==
LOC: RADMAMWWP 13:53
PROVIDERS: ATTEND Obstetrics & Gynecology
DX: Z12.31 Encounter for screening mammogram for malignant neoplasm of breast (principal); M89.9 Disorder of bone, unspecified
CPT/HCPCS: 77063; 77067; 77080

== ENCOUNTER → 2020-04-22 | Outpatient (CLI) | payer BC ==
--- NOTE | 2020-04-22 16:08 | CT ---
EXAMINATION TYPE: CT urogram wo/w con DATE OF EXAM: 04/22/2020 HISTORY: hematuria CT DLP: 3261mGycm Automated Exposure Control for Dose Reduction was Utilized. CONTRAST: CT scan of the abdomen and pelvis is performed without and with IV Contrast, patient injected with 10 0 mL of Isovue 300. COMPARISON: CT abdomen pelvis 03/08/2018 FINDINGS: There are coronary artery calcifications present. Small umbilical hernia contains fat. LUNG BASES: No significant abnormality is appreciated. LIVER/GB: Liver shows low attenuation possibly due to hepatic steatosis and the liver is enlarged. Ga llbladder is within normal limits.. PANCREAS: No significant abnormality is seen. SPLEEN: No significant abnormality is seen. ADRENALS: No significant abnormality is seen. KIDNEYS: The left kidney shows a mass within the collecting system at the lower pole showing intermed iate density on precontrast images, there is some enhancement following contrast administration. The lesion extends from the lower pole calyx into the renal pelvis and measures approximately 4.5 cm in g reatest transverse dimension by 2 cm in AP dimension by 3.3 cm in cephalad to caudal dimension. Some contrast does course by the lesion following excretion by the kidney. There is no nephrolithiasis, no ureteral calculus. The ureters show normal course and caliber. Right kidney shows no mass. BOWEL: No significant abnormality is seen. UTERUS/ADNEXA: No gross abnormality seen. LYMPH NODES: No greater than 1cm abdominal or pelvic lymph nodes are appreciated. OSSEOUS STRUCTURES: No significant abnormality is seen. OTHER: No significant additional abnormality is seen. 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 Hepatomegaly and hepatic steatosis. Umbilical hernia.
== END | disposition home or self-care (01) ==
LOC: RADCTMAIN 13:39
PROVIDERS: ATTEND Urology
DX: R16.0 Hepatomegaly, not elsewhere classified (principal); K76.0 Fatty (change of) liver, not elsewhere classified; K42.9 Umbilical hernia without obstruction or gangrene; Z88.1 Allergy status to other antibiotic agents; Z88.6 Allergy status to analgesic agent; Z88.8 Allergy status to other drugs, medicaments and biological substances
CPT/HCPCS: 82565; 84520; 74178; 36415; 74400; Q9967

== ENCOUNTER → 2020-05-19 | Outpatient (CLI) | payer BC ==
--- NOTE | 2020-05-19 15:38 | XR ---
EXAMINATION TYPE: XR chest 2V DATE OF EXAM: 05/19/2020 COMPARISON: Chest x-ray April 11, 2018 HISTORY: History of COPD. TECHNIQUE: Frontal and lateral views of the chest are obtained. FINDINGS: There is no new suspicious focal air space opacity, pleural effusion, or pneumothorax seen . The cardiac silhouette size remains within normal limits with atherosclerotic change in the aortic knob. Multilevel spurring in thoracic spine redemonstrated. IMPRESSION: No acute cardiopulmonary process. No significant change from prior.
== END | disposition home or self-care (01) ==
LOC: RADXRMAIN 15:18
PROVIDERS: ATTEND Family Medicine
DX: J44.9 Chronic obstructive pulmonary disease, unspecified (principal)
CPT/HCPCS: 71046

== ENCOUNTER → 2020-06-06 | Outpatient (CLI) | payer BC ==
[2020-06-06 13:14] LABS: African American GFR (CKD) >90 (>60 ml/min/1.73 sqM); Blood Urea Nitrogen 8 mg/dL (7-17); Non-African American GFR(CKD) >90 (>60 ml/min/1.73 sqM)
--- NOTE | 2020-06-06 15:17 | CT ---
EXAMINATION TYPE: CT angio abd aorta w/Runoff DATE OF EXAM: 06/06/2020 HISTORY: Loss of pulse in the foot. Side not specified. CT DLP: 1193.2mGycm Automated Exposure Control for Dose Reduction was Utilized. CONTRAST: CTA scan of the abdomen and pelvis with lower extremity runoff is performed without oral but with IV Contrast, patient injected with 125 mL of Isovue 370. COMPARISON: CT abdomen and pelvis March 08, 2018. CT urogram April 22, 2020 FINDINGS: VASCULAR: Patent celiac artery and SMA, patent bilateral single renal arteries and SANDY. Moderate mixe d plaque in the distal abdominal aorta which is ectatic measuring up to 2.6 cm AP diameter axial imag e 70. No greater than 3.0 cm aneurysmal change. No significant stenosis. Common iliac arteries bilate rally show moderate calcified peripheral plaque without significant stenosis. Moderate plaque in the common femoral arteries bilaterally without significant stenosis. Satisfactory branching into right superficial and deep femoral arteries. Moderate calcified plaque al doyle the course of the superficial femoral artery, more severe calcified plaque distal segment near ax ial image 228 likely causing significant stenosis. Popliteal artery shows more mild plaque without si gnificant stenosis. Satisfactory bifurcation and trifurcation. Good three-vessel flow in the right mi d leg and two-vessel flow in the distal right leg. Moderate calcified plaque along the course of the left superficial femoral artery. Severe calcified p laque distal aspect near image 225. Significant stenosis with possible complete occlusion is present at this level. Popliteal artery shows more moderate plaque. Good bifurcation trifurcation. Good 3 ves azeem flow the mid leg two-vessel flow in the distal leg. LUNG BASES: No significant abnormality is appreciated. LIVER/GB: Visualized liver remains low dense relative to spleen consistent with diffuse fatty infiltr ation. PANCREAS: No significant abnormality is seen. SPLEEN: A few small splenules anterior to the spleen redemonstrated. ADRENALS: No significant abnormality is seen. KIDNEYS: Redemonstration of enlarged mid to lower pole pelvis and the left kidney with hyperdense mat erial axial image 56 for reference and coronal image 46 worrisome for mass or neoplasm causing some p yelocaliectasis of the lower pole left kidney. BOWEL: Few diverticula in the sigmoid colon. UTERUS/ADNEXA: Anteverted uterus. LYMPH NODES: No greater than 1cm abdominal or pelvic lymph nodes are appreciated. OSSEOUS STRUCTURES: No significant abnormality is seen. LOWER EXTREMITIES: Mild to moderate left greater than right distal leg enlargement with subcutaneous edema. Asymmetric Small to moderate sized right knee suprapatellar joint effusion extending laterally OTHER: No significant additional abnormality is seen. IMPRESSION: Suboptimal study due to prominent calcified plaque. Moderate to severe calcified plaque m id to distal superficial femoral arteries bilaterally has significant stenosis bilaterally at distal superficial femoral artery level. There is more prominent stenosis and/or focal complete occlusion no trinity on the left. Consider direct catheter angiogram to further evaluate and/or treat. Bilateral dista l lower extremity swelling and subcutaneous edema left greater than right correlates with vascular fi ndings.
== END | disposition home or self-care (01) ==
LOC: RADCTMAIN 12:04
PROVIDERS: ATTEND Family Medicine
DX: I70.209 Unspecified atherosclerosis of native arteries of extremities, unspecified extremity (principal); R60.0 Localized edema; Z13.9 Encounter for screening, unspecified
CPT/HCPCS: 82565; 84520; 75635; 36415; Q9967

== ENCOUNTER → 2020-06-21 | Outpatient (CLI) | payer BC ==
[2020-06-21 15:14] LABS: Basophils # (A) 0.1 k/uL (0-0.2); Basophils % (A) 1 %; Eosinophils # (A) 0.3 k/uL (0-0.7); Eosinophils % (A) 3 %; HCT 40.7 % (34.0-46.0); HGB 13.1 gm/dL (11.4-16.0); Lymphocytes # (A) 2.9 k/uL (1.0-4.8); Lymphocytes % (A) 33 %; MCH 31.9 pg (25.0-35.0); MCHC 32.2 g/dL (31.0-37.0); MCV 99.1 fL (80.0-100.0); Mean Platelet Volume 8.4; Monocytes # (A) 0.4 k/uL (0-1.0); Monocytes % (A) 5 %; Neutrophils % (A) 57 %; Platelet Count 247 k/uL (150-450); RBC 4.11 m/uL (3.80-5.40); RDW 13.8 % (11.5-15.5); WBC 8.8 k/uL (3.8-10.6)
[2020-06-21 15:27] LABS: African American GFR (CKD) >90 (>60 ml/min/1.73 sqM); Anion Gap 8 mmol/L; Blood Urea Nitrogen 11 mg/dL (7-17); Calcium 10.4 mg/dL (8.4-10.2); Carbon Dioxide 31 mmol/L (22-30); Chloride 100 mmol/L (98-107); Glucose 123 mg/dL (74-99); Non-African American GFR(CKD) >90 (>60 ml/min/1.73 sqM); Potassium 3.7 mmol/L (3.5-5.1); Sodium 139 mmol/L (137-145)
== END | disposition home or self-care (01) ==
LOC: LABPAT 13:48
PROVIDERS: ATTEND Urology
DX: Z01.818 Encounter for other preprocedural examination (principal); C64.2 Malignant neoplasm of left kidney, except renal pelvis; E11.9 Type 2 diabetes mellitus without complications; I10 Essential (primary) hypertension
CPT/HCPCS: 36415; 80048; 85025; 93005

== ENCOUNTER 2020-06-30 07:01 | Inpatient (IN) | payer MEDICARE, BC ==
[2020-06-27 12:54] VITALS: BMI 34.7
--- NOTE | 2020-06-29 23:39 | P.HPIHPCON ---
History of Present Illness H&P Date: 06/30/20 Chief Complaint: left sided TCC Ms Bhardwaj is a 64 yo female with history of left sided TCC. She underwent left -sided ureteroscopy with renal pelvis biopsy that showed evidence of high grade TCC.. Given the finding of high-grade TCC decision was made to proceed with a robotic nephroureterectomy on the left. I discussed with her the benefit and risk of the procedure. Discussed with her the risks which includes but not limited to bleeding, infection, injury to the bowel, spleen, and other nearby organs. I discussed with her the potential of converting to open. Also discussed with her the risk from anesthesia, discussed with him potential tumor recurrence, discussed with her though her kidney function is normal there is a potential that she could need dialysis postoperatively. She understood all the risk and agreed to proceed with left sided nephroureterectomy Consent for Procedure: I have explained the operation/procedure to the patient, including the risks, benefits, side effects, alternative therapies (including not receiving the proposed treatment or service), the likelihood of the patient achieving his/her goals, and potential recuperation problems for the procedure/sedation/analgesia, as well as any blood products, if indicated. I also explained to the patient the risks, benefits and side effects of the alternatives, as well as the risks related to not receiving the proposed procedure, care, treatment, or services. Past Medical History Past Medical History: Cancer, COPD, Diabetes Mellitus, Eye Disorder, Hyperlipidemia, Hypertension, Osteoarthritis (OA), Vascular Disorder Additional Past Medical History / Comment(s): glaucoma, migraines, kidney stones, recent blood in urine, new dx. kidney cancer, tinnitus, occasional foot & ankle swelling, possible blockage in lower left leg-will be addressing after current surgery History of Any Multi-Drug Resistant Organisms: None Reported Past Surgical History: Orthopedic Surgery, Tonsillectomy, Tubal Ligation Additional Past Surgical History / Comment(s): kaitlynn foot surgery, some teeth extracted Past Anesthesia/Blood Transfusion Reactions: Motion Sickness, Postoperative Nausea & Vomiting (PONV) Smoking Status: Current every day smoker - Past Family History Mother Family Medical History: Cancer Medications and Allergies Home Medications Medication Instructions Recorded Confirmed Type Fenofibrate Nanocrystallized 145 mg PO DAILY 03/29/15 06/27/20 History [Tricor] Metoprolol Tartrate 25 mg PO BID 03/29/15 06/27/20 History Albuterol Inhaler (Mhu) [Ventolin 2 puff INHALATION RT-Q6H PRN 03/08/18 06/27/20 History Hfa Inhaler (Mhu)] Latanoprost/Pf [Latanoprost 0.005% 1 drop BOTH EYES HS 03/08/18 06/27/20 History Eye Drop] Rosuvastatin [Crestor] 20 mg PO HS 03/08/18 06/27/20 History metFORMIN HCL 1,000 mg PO BID 03/08/18 06/27/20 History Cinnamon Bark [Cinnamon] 500 mg PO DAILY 06/27/20 06/27/20 History Dapagliflozin Propanediol [Farxiga] 10 mg PO DAILY 06/27/20 06/27/20 History Furosemide [Lasix] 20 mg PO DAILY 06/27/20 06/27/20 History Losartan/Hydrochlorothiazide 1 tab PO DAILY 06/27/20 06/27/20 History [Losartan-Hctz 100-25 mg Tab] Multivitamins, Thera [Multivitamin 1 tab PO DAILY 06/27/20 06/27/20 History (formulary)] Semaglutide [Ozempic] 1 mg SQ ALLISON 06/27/20 06/27/20 History Turmeric Root Extract [Turmeric] 500 mg PO DAILY 06/27/20 06/27/20 History Allergies Allergy/AdvReac Type Severity Reaction Status Date / Time ciprofloxacin [From Cipro] Allergy Rash/Hives Verified 06/27/20 12:08 ciprofloxacin HCl Allergy Rash/Hives Verified 06/27/20 12:08 [From Cipro] phenazopyridine HCl Allergy Rash/Hives Verified 06/27/20 12:08 [From Pyridium] stong pain medications Allergy Vomiting Uncoded 06/27/20 12:08 Surgical - Exam - General well developed, well nourished, no distress, no pain - Eyes PERRL, normal ocular movement - ENT normal nares, normal mucosa - Respiratory normal expansion, normal respiratory effort - Abdomen Abdomen: soft, non tender - Psychiatric oriented to time, oriented to person, oriented to place, speech is normal Assessment and Plan Assessment: 64 yo female with hx of left sided TCC -OR for robotic left NephU
[~2020-06-30 07:01] MED LIST: HEPARIN SODIUM,PORCINE 5,000 UNIT/ML 1 ML VIAL SQ PRN; HYDROmorphone 0.5 MG/0.5 ML SYRINGE IVP PRN; MIDAZOLAM 2 MG/2 ML VIAL IV PRN
[2020-06-30 08:31] LABS: Glucose,Whole Blood 131 mg/dL (75-99)
[2020-06-30] MEDS ORDERED: LACTATED RINGERS 1,000 ML IV ONE ×2 (08:38→11:51)
[2020-06-30] MEDS ORDERED: LIDOCAINE 1% (10MG/ML) FOR IV START INTRADERMA ONE ×2 (08:38→08:40)
[2020-06-30] MEDS: LACTATED RINGERS 1,000 ML IV SCH ×3 (08:43→14:55)
[2020-06-30] MEDS: DEXAMETHASONE SOD PHOSPHATE 4 MG/ML 1 ML VIAL IV ONE ×2 (08:55→14:55)
[2020-06-30] MEDS: ONDANSETRON 4 MG/2 ML VIAL IVP ONE ×2 (08:56→14:55)
[2020-06-30] MEDS: SCOPOLAMINE 1.5MG/72HR PATCH TRANSDERM ONE ×2 (08:56→14:55)
[2020-06-30] MEDS ORDERED: BUPIVACAINE (PF) 0.5% 30 ML VIAL SQ ONE ×2 (09:32→12:52)
[2020-06-30] MEDS ORDERED: ROCURONIUM 10 MG/ML (10 ML VIAL) IV ONE (09:42)
[2020-06-30] MEDS ORDERED: fentaNYL (PF) 50 MCG/ML 2 ML AMP ONE (09:42)
[2020-06-30] MEDS ORDERED: SUCCINYLCHOLINE CHLORIDE 100 MG/5 ML SYR IV ONE (09:42)
[2020-06-30] MEDS ORDERED: HYDROmorphone (PF) 1 MG/ML ONE (09:42)
[2020-06-30] MEDS ORDERED: PROPOFOL 10 MG/ML 20 ML VIAL IV ONE (09:42)
[2020-06-30] MEDS ORDERED: MIDAZOLAM 2 MG/2 ML VIAL ONE (09:42)
[2020-06-30] MEDS ORDERED: ePHEDrine SULFATE/0.9% NACL/PF 50 MG/5 ML SYRINGE IV ONE (09:42)
[2020-06-30] MEDS ORDERED: LIDOCAINE 1% INJ 10MG/ML (20 ML MDV) ONE (09:42)
[2020-06-30] MEDS ORDERED: KETAMINE 10 MG/ML 20 ML VIAL ONE (09:42)
[2020-06-30] MEDS ORDERED: HYDROcodone/APAP 5-325MG 1 EACH TAB PO PRN (10:05)
--- NOTE | 2020-06-30 13:06 | P.OP ---
Date of Procedure: 06/30/20 Preoperative Diagnosis: Left renal TCC Postoperative Diagnosis: Same Procedure(s) Performed: Robotic-assisted laparoscopic left nephroureterectomy Implants: none Anesthesia: BRIDGETT Surgeon: Adithya Fallon Motor Teacher #1: Theresa Ewing Estimated Blood Loss (ml): 25 Pathology: other (Left kidney and ureter) Condition: stable Disposition: PACU Indications for Procedure: Ms Bhardwaj is a 64 yo female with history of left sided TCC. She underwent left -sided ureteroscopy with renal pelvis biopsy that showed evidence of high grade TCC.. Given the finding of high-grade TCC decision was made to proceed with a robotic nephroureterectomy on the left. I discussed with her the benefit and risk of the procedure. Discussed with her the risks which includes but not limited to bleeding, infection, injury to the bowel, spleen, and other nearby organs. I discussed with her the potential of converting to open. Also discussed with her the risk from anesthesia, discussed with him potential tumor recurrence, discussed with her though her kidney function is normal there is a potential that she could need dialysis postoperatively. She understood all the risk and agreed to proceed with left sided nephroureterectomy Operative Findings: Left nephroureterectomy, the gerota fat along the upper pole was adherent. otherwise uncomplicated robotic left nephroureterectomy Description of Procedure: The patient was taken to the operating room . General anesthesia was induced. She was prepped and draped in sterile fashion, and was placed in modified flank position . All pressure points were padded. The abdominal insufflation was achieved with the Veress needle. A 8 mm camera port was placed. Robotic trocars and school bus driver/teacher assistant ports were placed under direct vision . The robot was docked into place. The colon was mobilized medially by incising along the white line of Toldt. Next the spleen and the pancreas were mobilized. To gerota fat in the upper pole was adherent to the pancreas ,. Next the ureter was retracted anteriorly off the psoas muscle. Dissection proceeded cranially towards the renal hilum. The upper pole attachments were dissected. Care was taken to safely mobilize the kidney free of all visceral structures.The renal vessels were dissected. At this point the renal vessels were exposed. Next the renal hilum was ligated using the vascular stapler. The adrenal gland was mobilized. Lateral and remaining kidney attachments were released. At this point attention was carried to the ureterctomy. The left gonadal vein was ligated and transected. The ureter was dissected further distally. Care was taken not to injure the iliac vessels. The left vas was ligated and transected. Further dissection was carried to the bladder. the ureter was excised with ureteral orfice and adequate ureteral cuff. The cysotomy was closed using 3-0 V-lock. The kidney and ureter was placed in an Endo Catch bag. a FLORENCIA drain was placed at the site of 4th arms. . The robot was then de-docked and the specimen was then removed by extending the school bus driver/teacher assistant port. Fascia was closed with one layer using #1 Stratafix. Skin was closed with subcuticular sutures and dermabond. The patient was awoken from general anesthesia in stable condition. Please refer to the final pathology report for final diagnosis
[2020-06-30 13:37] LABS: Glucose,Whole Blood 188 mg/dL (75-99)
[2020-06-30 17:10] LABS: Glucose,Whole Blood 179 mg/dL (75-99)
[2020-06-30] MEDS: methocarbamoL 750 MG TAB PO SCH ×2 (18:09→20:56)
[2020-06-30] MEDS: D5-0.45% NACL WITH KCL 20MEQ/L 1,000 ML IV SCH ×2 (18:09→23:30)
[2020-06-30] MEDS: metFORMIN 500 MG TAB PO SCH (18:10)
[2020-06-30] MEDS ORDERED: KETOROLAC 15 MG/ML 1 ML VIAL IM PRN (20:44)
[2020-06-30] MEDS ORDERED: ONDANSETRON 4 MG/2 ML VIAL IVP PRN (20:47)
[2020-06-30] MEDS ORDERED: traMADol 50 MG TAB PO PRN (20:47)
[2020-06-30] MEDS: METOPROLOL TARTRATE 25 MG TAB PO SCH (20:55)
[2020-06-30] MEDS: KETOROLAC 15 MG/ML 1 ML VIAL IVP PRN (20:59)
[2020-06-30] MEDS ORDERED: ATORVASTATIN 40 MG TAB PO SCH (21:00)
[2020-06-30 21:05] LABS: Glucose,Whole Blood 176 mg/dL (75-99)
[2020-07-01] MEDS: KETOROLAC 15 MG/ML 1 ML VIAL IVP PRN ×2 (02:22→08:48)
[2020-07-01 06:55] LABS: Basophils % (A) 0 %; Eosinophils # (A) 0.1 k/uL (0-0.7); Eosinophils % (A) 1 %; HCT 36.8 % (34.0-46.0); HGB 12.2 gm/dL (11.4-16.0); Lymphocytes % (A) 21 %; MCH 33.1 pg (25.0-35.0); MCHC 33.1 g/dL (31.0-37.0); Mean Platelet Volume 8.4; Monocytes # (A) 0.4 k/uL (0-1.0); Monocytes % (A) 4 %; Neutrophils % (A) 73 %; Platelet Count 228 k/uL (150-450); RBC 3.68 m/uL (3.80-5.40); RDW 13.6 % (11.5-15.5); WBC 9.6 k/uL (3.8-10.6)
[2020-07-01] MEDS: D5-0.45% NACL WITH KCL 20MEQ/L 1,000 ML IV SCH ×3 (07:35→15:48)
[2020-07-01 07:56] LABS: Glucose,Whole Blood 132 mg/dL (75-99)
[2020-07-01 08:29] VITALS: RESP 18
[2020-07-01] MEDS: metFORMIN 500 MG TAB PO SCH (08:34)
[2020-07-01] MEDS: METOPROLOL TARTRATE 25 MG TAB PO SCH (08:34)
[2020-07-01] MEDS: methocarbamoL 750 MG TAB PO SCH ×2 (08:35→16:11)
[2020-07-01] MEDS ORDERED: FUROSEMIDE 20 MG TAB PO SCH (09:00)
[2020-07-01] MEDS ORDERED: MULTIVITAMINS, THERA 1 EACH TAB PO SCH (09:00)
[2020-07-01] MEDS ORDERED: LOSARTAN-HCTZ 50-12.5 MG 1 EACH TAB PO SCH (09:00)
[2020-07-01 09:35] LABS: African American GFR (CKD) 55.3 (60.0-200.0); Anion Gap 9.4 mmol/L (4.00-12.00); BUN/Creat Ratio 11.67 Ratio (12.00-20.00); Calcium 9.5 mg/dL (8.7-10.3); Carbon Dioxide 27.6 mmol/L (21.6-31.8); Non-African American GFR(CKD) 47.7 (60.0-200.0); Potassium 3.6 mmol/L (3.5-5.5)
[2020-07-01 11:44] LABS: Glucose,Whole Blood 148 mg/dL (75-99)
[2020-07-01 15:35] VITALS: BP 137/87; PULSE 77; TEMP 98.1
[2020-07-01 16:28] LABS: Glucose,Whole Blood 125 mg/dL (75-99)
--- NOTE | 2020-07-01 16:33 | P.DS ---
Providers Date of admission: 06/30/20 07:51 Attending physician: Adithya Fallon MD Primary care physician: [facility] Course: MS Bhardwaj is a 64 yo female with history of left sided transitional cell carcinoma. She underwent a robotic left nephroureterectomy. A complication during the case. Please see op note dated June 30 for surgery detail. Her FLORENCIA was removed on postop day #1. She did well post operatively. She was discharged home on postop day #1. At time of discharge she was tolerating a diet, ambulating, pain is well-controlled, incision clean dry and intact, abdomen exam was benign . She was discharged home with the Heredia catheter Plan - Discharge Summary Discharge Rx Participant: No New Discharge Prescriptions: New methocarbamoL [Robaxin] 750 mg PO QID PRN #20 tab PRN Reason: Pain traMADol HCl [Ultram] 50 mg PO Q6HR PRN 3 Days #12 tab PRN Reason: Pain No Action Metoprolol Tartrate 25 mg PO BID Fenofibrate Nanocrystallized [Tricor] 145 mg PO DAILY Rosuvastatin [Crestor] 20 mg PO HS metFORMIN HCL 1,000 mg PO BID Latanoprost/Pf [Latanoprost 0.005% Eye Drop] 1 drop BOTH EYES HS Albuterol Inhaler (Mhu) [Ventolin Hfa Inhaler (Mhu)] 2 puff INHALATION RT-Q6H PRN PRN Reason: Shortness Of Breath Multivitamins, Thera [Multivitamin (formulary)] 1 tab PO DAILY Furosemide [Lasix] 20 mg PO DAILY Turmeric Root Extract [Turmeric] 500 mg PO DAILY Semaglutide [Ozempic] 1 mg SQ ALLISON Losartan/Hydrochlorothiazide [Losartan-Hctz 100-25 mg Tab] 1 tab PO DAILY Dapagliflozin Propanediol [Farxiga] 10 mg PO DAILY Cinnamon Bark [Cinnamon] 500 mg PO DAILY Discharge Medication List Fenofibrate Nanocrystallized [Tricor] 145 mg PO DAILY 03/29/15 [History] Metoprolol Tartrate 25 mg PO BID 03/29/15 [History] Albuterol Inhaler (Mhu) [Ventolin Hfa Inhaler (Mhu)] 2 puff INHALATION RT-Q6H PRN 03/08/18 [History] Latanoprost/Pf [Latanoprost 0.005% Eye Drop] 1 drop BOTH EYES HS 03/08/18 [History] Rosuvastatin [Crestor] 20 mg PO HS 03/08/18 [History] metFORMIN HCL 1,000 mg PO BID 03/08/18 [History] Cinnamon Bark [Cinnamon] 500 mg PO DAILY 06/27/20 [History] Dapagliflozin Propanediol [Farxiga] 10 mg PO DAILY 06/27/20 [History] Furosemide [Lasix] 20 mg PO DAILY 06/27/20 [History] Losartan/Hydrochlorothiazide [Losartan-Hctz 100-25 mg Tab] 1 tab PO DAILY 06/27/20 [History] Multivitamins, Thera [Multivitamin (formulary)] 1 tab PO DAILY 06/27/20 [History] Semaglutide [Ozempic] 1 mg SQ ALLISON 06/27/20 [History] Turmeric Root Extract [Turmeric] 500 mg PO DAILY 06/27/20 [History] methocarbamoL [Robaxin] 750 mg PO QID PRN #20 tab 07/01/20 [Rx] traMADol HCl [Ultram] 50 mg PO Q6HR PRN 3 Days #12 tab 07/01/20 [Rx] Follow up Appointment(s)/Referral(s): [facility], [NON-STAFF] - 1-2 Days [facility] [NON-STAFF] - 1 Week Adithya Fallon MD [STAFF PHYSICIAN] - 1 Week Patient Instructions/Handouts: *Surgery [facility] - Heredia Catheter Instructions, Methocarbamol (By mouth), Tramadol (By mouth), Nephrectomy (DC) Activity/Diet/Wound Care/Special Instructions: No heavy lifting or straining for 6 weeks You may see some blood in the urine Eat frequent small meals, avoid greasy food for the next week
== END 2020-07-01 17:37 | disposition home health service (06) | DRG 658 ==
LOC: 2ORMAIN 07:51 → EDSTATUS 09:30 → 5NMEDONC 13:26
PROVIDERS: ADMIT Urology; ATTEND Urology
DX: C64.2 Malignant neoplasm of left kidney, except renal pelvis (principal); E11.51 Type 2 diabetes mellitus with diabetic peripheral angiopathy without gangrene; E11.39 Type 2 diabetes mellitus with other diabetic ophthalmic complication; J44.9 Chronic obstructive pulmonary disease, unspecified; I71.4 Abdominal aortic aneurysm, without rupture; E78.5 Hyperlipidemia, unspecified; E78.00 Pure hypercholesterolemia, unspecified; I10 Essential (primary) hypertension; H40.9 Unspecified glaucoma; H42 Glaucoma in diseases classified elsewhere; M19.90 Unspecified osteoarthritis, unspecified site; H93.19 Tinnitus, unspecified ear; F17.210 Nicotine dependence, cigarettes, uncomplicated; Z79.84 Long term (current) use of oral hypoglycemic drugs; Z79.899 Other long term (current) drug therapy; Z87.442 Personal history of urinary calculi; Z90.89 Acquired absence of other organs; Z98.51 Tubal ligation status; Z98.818 Other dental procedure status; Z87.19 Personal history of other diseases of the digestive system; Z98.890 Other specified postprocedural states; Z88.1 Allergy status to other antibiotic agents; Z88.5 Allergy status to narcotic agent; Z88.8 Allergy status to other drugs, medicaments and biological substances; Z83.3 Family history of diabetes mellitus; Z83.49 Family history of other endocrine, nutritional and metabolic diseases; Z80.9 Family history of malignant neoplasm, unspecified; Z82.49 Family history of ischemic heart disease and other diseases of the circulatory system
CPT/HCPCS: 80048; 85025; 86850; 86900; 86901; 88307

== ENCOUNTER → 2020-12-06 | Outpatient (CLI) | payer MEDICARE, BC ==
--- NOTE | 2020-12-06 14:08 | XR ---
EXAMINATION TYPE: XR chest 2V DATE OF EXAM: 12/06/2020 COMPARISON: 05/19/2020 TECHNIQUE: PA and lateral views submitted. HISTORY: Malignant neoplasm of the kidney FINDINGS: The lungs are clear and there is no pneumothorax, pleural effusion, or focal pneumonia. Atheroscler otic change aorta. Calcific tendinosis of the left shoulder. Hypertrophic and degenerative change of the spine. No overt failure. Heart size normal. IMPRESSION: 1. No acute process.
--- NOTE | 2020-12-06 21:26 | CT ---
EXAMINATION TYPE: CT urogram wo/w con DATE OF EXAM: 12/06/2020 COMPARISON: 04/22/2020 INDICATION: Malignant neoplasm of left kidney, history of nephrectomy. DLP: 4348.6 mGycm, Automated exposure control for dose reduction was used. CONTRAST: 80ml mL of Isovue 300. Study performed without Oral Contrast TECHNIQUE: Axial images were obtained from above the diaphragm to the pubic rami in the axial plane a t 5 mm thick sections. Reconstructed images are reviewed on the computer in the coronal plane. 3 D reconstructed images performed separately on a different computer performed by the technologist. FINDINGS: Limited CT sections are obtained the lung bases. The lung bases are clear. Coronary artery calcific ations present. CT ABDOMEN: Liver: Normal Spleen: Normal Pancreas: Normal Adrenal glands: The adrenal glands are normal. Gallbladder: Normal Kidneys: Left kidney has been surgically resected. No right renal masses are evident. No recurrent le ft renal bed masses are evident. No hydronephrosis is present. No cysts are present. No renal ston es are evident on noncontrast imaging. Aorta: Vascular calcification is within the aorta. Inferior vena cava: Normal. CT PELVIS: Loops of bowel within the abdomen and pelvis are normal. The study is without oral contrast limit ing bowel evaluation. Appendix: Not identified. No suspicious dilated tubular structure or inflammatory changes are evident . Urinary bladder: Normal. Genitourinary structures: Uterus is in the left hemipelvis. Adnexal regions appear unremarkable Osseous structures: No suspicious lytic or sclerotic lesions. Three-D reconstructed images of the renal collecting system are reviewed. Renal collecting system is visualized appears normal. Ureter extends to the pelvis. The distal ureters not identified during thi s exam. IMPRESSIONS: 1. No suspicious renal or ureteral abnormality identified. The distal ureter cannot be evaluated dur ing the exam. 2. No suspicious changes to suggest metastatic disease.
== END | disposition home or self-care (01) ==
LOC: RADCTMAIN 13:36
PROVIDERS: ATTEND Urology
DX: C64.2 Malignant neoplasm of left kidney, except renal pelvis (principal)
CPT/HCPCS: 82565; 84520; 71046; 74178; 36415; 74400; Q9967

== ENCOUNTER → 2021-05-19 | Outpatient (CLI) | payer MEDICARE, BC ==
--- NOTE | 2021-05-23 09:08 | MM ---
Reason for exam: screening (asymptomatic). Last mammogram was performed 2 years ago. History: Patient is postmenopausal and had first child at age 36. Physical Findings: A clinical breast exam by your physician is recommended on an annual basis and results should be correlated with mammographic findings. MG 3D Screening Mammo W/Cad Bilateral CC and MLO view(s) were taken. Prior study comparison: May 04, 2019, bilateral MG 3d screening mammo w/cad. February 19, 2017, bilateral MG 3d screening mammo w/cad. The breast tissue is heterogeneously dense. This may lower the sensitivity of mammography. No significant changes when compared with prior studies. ASSESSMENT: Benign, BI-RAD 2 RECOMMENDATION: Routine screening mammogram of both breasts in 1 year.
== END | disposition home or self-care (01) ==
LOC: RADMAMWWP 16:13
PROVIDERS: ATTEND Obstetrics & Gynecology
DX: Z12.31 Encounter for screening mammogram for malignant neoplasm of breast (principal); Z78.0 Asymptomatic menopausal state
CPT/HCPCS: 77063; 77067

== ENCOUNTER 2021-11-15 15:54 | Emergency (ER) | payer MEDICARE, BC ==
[2021-11-15] MEDS ORDERED: KETOROLAC 15 MG/ML 1 ML VIAL IM STA (16:27)
--- NOTE | 2021-11-15 17:04 | XR ---
EXAMINATION TYPE: XR Hip Complete RT DATE OF EXAM: 11/15/2021 COMPARISON: CT dated 12/06/2020 INDICATION: Pain TECHNIQUE: 2 views of the right hip FINDINGS: Mild degenerative changes of the right hip joint. No definite acute fracture line identified. No femo ral head dislocation or significant subluxation. Enthesophytosis of the right femoral greater trochan ter. Arterial atherosclerotic calcifications IMPRESSION: No definite acute abnormality. Mild degenerative changes of the right hip joint.
--- NOTE | 2021-11-15 17:25 | ED ---
General Adult HPI - General Chief complaint: Extremity Problem,Nontraumatic Stated complaint: hip pain Time Seen by Provider: 11/15/21 16:12 Source: patient, EMS, RN notes reviewed, old records reviewed Mode of arrival: EMS Limitations: no limitations - History of Present Illness Initial comments: 66 yo female presenting for evaluation of right hip pain. Patient denies injury. States it began this morning. She denies pain in the lower portion of the right lower extremity. This is isolated to the hip. No back pain. No abdominal pain. No dysuria or hematuria. No vomiting. The pain is worse with standing. Worse with walking. - Related Data Home Medications Medication Instructions Recorded Confirmed Fen[facility]ate [facility]ocrystallized [facility] 03/29/15 11/15/21 [Tricor] Metoprolol Tartrate 25 mg PO [facility] 03/29/15 11/15/21 Latanoprost/Pf [Latanoprost 0.005% 1 drop LEFT EYE HS 03/08/18 11/15/21 Eye Drop] Rosuvastatin [Crestor] 20 mg PO HS 03/08/18 11/15/21 metFORMIN HCL [Glucophage] 1,000 mg PO -KT 03/08/18 11/15/21 Dapagliflozin Propanediol [Farxiga] 10 mg PO -KT 06/27/20 11/15/21 Furosemide [Lasix] 20 mg PO -KT 06/27/20 11/15/21 Semaglutide [Ozempic] 1 mg SQ TH 06/27/20 11/15/21 Losartan Potassium [Cozaar] 100 mg PO -KT 11/15/21 11/15/21 Previous Rx's Medication Instructions Recorded traMADol HCL [Ultram] 50 mg PO Q8HR PRN 3 Days #12 tab 11/15/21 Allergies Allergy/AdvReac Type Severity Reaction Status Date / Time ciprofloxacin [From Cipro] Allergy Rash/Hives Verified 11/15/21 16:41 ciprofloxacin HCl Allergy Rash/Hives Verified 11/15/21 16:41 [From Cipro] phenazopyridine HCl Allergy Rash/Hives Verified 11/15/21 16:41 [From Pyridium] stong pain medications Allergy Vomiting Uncoded 04/20/22 16:01 Review of Systems ROS Statement: Those systems with pertinent positive or pertinent negative responses have been documented in the HPI. ROS Other: All systems not noted in ROS Statement are negative. Past Medical History Past Medical History: Diabetes Mellitus, Eye Disorder, Hyperlipidemia, Hypertension, Osteoarthritis (OA) Additional Past Medical History / Comment(s): glaucoma, migraines, chronic bronchitis, type ii DM History of Any Multi-Drug Resistant Organisms: None Reported Past Surgical History: Orthopedic Surgery Additional Past Surgical History / Comment(s): kaitlynn foot surgery Past Anesthesia/Blood Transfusion Reactions: Motion Sickness Past Psychological History: Anxiety, Depression Smoking Status: Current every day smoker Past Alcohol Use History: Occasional Past Drug Use History: Marijuana - Past Family History Mother Family Medical History: Cancer General Exam Limitations: no limitations General appearance: alert, in no apparent distress Head exam: Present: atraumatic, normocephalic Eye exam: Present: normal appearance, PERRL ENT exam: Present: normal exam Neck exam: Present: normal inspection. Absent: tenderness, meningismus Respiratory exam: Present: normal lung sounds bilaterally. Absent: respiratory distress, wheezes Cardiovascular Exam: Present: regular rate, normal rhythm GI/Abdominal exam: Present: soft. Absent: distended, tenderness, guarding Extremities exam: Present: normal capillary refill. Absent: full ROM (Pain with range of motion of the right hip), calf tenderness Neurological exam: Present: alert, oriented X3, CN II-XII intact. Absent: motor sensory deficit Psychiatric exam: Present: normal affect, normal mood Skin exam: Present: warm, dry, intact. Absent: cyanosis, diaphoretic Course Vital Signs 11/15/21 11/15/21 15:56 17:40 Temperature 98.1 F 99.0 F Pulse Rate 114 H 104 H Respiratory 20 18 Rate Blood Pressure 186/99 186/103 O2 Sat by Pulse 99 98 Oximetry - Reevaluation(s) Reevaluation #1: 11/15/21 19:46 Patient took her home blood pressure medication while in the emergency department. Medical Decision Making - Medical Decision Making 66-year-old female with right hip pain. No fever. Patient well-appearing. Extremities are warm without swelling, no numbness or tingling. No back pain. X-ray of the hip is performed which shows some joint space narrowing and signs of osteoarthritis. The patient had continued pain and therefore CT was obtained which is negative for fracture, showing osteoarthrosis. She feels better after anti-inflammatory medication. Patient will be prescribed tramadol. She will follow-up with orthopedics. Disposition Clinical Impression: Osteoarthritis of hip Disposition: HOME SELF-CARE Condition: Fair Instructions (If sedation given, give patient instructions): Osteoarthritis (ED), Hip Pain (ED) Prescriptions: traMADol HCL [Ultram] 50 mg PO Q8HR PRN 3 Days #12 tab PRN Reason: Pain Is patient prescribed a controlled substance at d/c from ED?: No Referrals: Lenin Duran DO [Primary Care Provider] - 1-2 days Abdoul Begum DO [Doctor of Osteopathic Medicine] - 1-2 days Time of Disposition: 19:48
[2021-11-15 17:42] VITALS: RESP 18; TEMP 99
--- NOTE | 2021-11-15 18:56 | CT ---
EXAMINATION TYPE: CT hip RT wo con DATE OF EXAM: 11/15/2021 COMPARISON: 06/06/2020 CT angiogram HISTORY: right hip pain, no injury TECHNIQUE: CT scan of the right hip. Three-D reconstruction performed. CT DLP: 997.4 mGycm Automated exposure control for dose reduction was used. FINDINGS: There are subchondral cysts involving the right hip joint acetabular portion. There is mild narrowing of the right hip joint space. There is no significant hip joint effusion. No fracture or dislocation is seen. There is also mild osteoarthrosis of the right sacroiliac joint. Included structures of the abdomen and pelvis are unremarkable. Vascular calcifications seen in the right external iliac artery and its distal branches in the proxim al thigh. There is mild generalized atrophy of the posterior thigh musculature. No significant soft tissue swelling seen. IMPRESSION: RIGHT HIP OSTEOARTHROSIS.RIGHT SACROILIAC JOINT OSTEOPOROSIS
[2021-11-15 20:09] VITALS: BP 152/86; PULSE 102
== END 2021-11-15 20:15 | disposition home or self-care (01) ==
LOC: EC 15:54
DX: M16.11 Unilateral primary osteoarthritis, right hip (principal); E11.9 Type 2 diabetes mellitus without complications; E78.5 Hyperlipidemia, unspecified; I10 Essential (primary) hypertension; F41.9 Anxiety disorder, unspecified; F32.A Depression, unspecified; F17.200 Nicotine dependence, unspecified, uncomplicated; F12.90 Cannabis use, unspecified, uncomplicated; Z79.84 Long term (current) use of oral hypoglycemic drugs; Z88.1 Allergy status to other antibiotic agents
CPT/HCPCS: 99284; 96372; 73502; 73700; J1885

== ENCOUNTER 2022-04-07 14:05 | Emergency (ER) | payer MEDICARE, BC ==
[2022-04-07 14:39] VITALS: RESP 18; TEMP 98.7
[2022-04-07] MEDS ORDERED: SODIUM CHLORIDE 0.9% 1,000 ML IV STA (15:48)
--- NOTE | 2022-04-07 15:52 | ED ---
Weakness HPI - General Chief complaint: Weakness Stated complaint: near syncope,weakness,shaky Time Seen by Provider: 04/07/22 15:31 Source: patient, family, RN notes reviewed, old records reviewed Mode of arrival: wheelchair Limitations: no limitations - History of Present Illness Initial comments: This is a 66-year-old female, alert and oriented 4 and well-appearing, presenting with complaints of generalized weakness, body aches and lightheadedness with sitting to standing. Patient states her symptoms started yesterday. She started to increase her water intake and did vomit today once, all water. She denies any fevers. States her blood glucose levels were 140 at home. She is a pack-a-day smoker or more. She has had a history of diabetes, hypertension, migraine headaches, osteoarthritis and abdominal hernia. MD Complaint: generalized weakness -: days(s) (2) Location: generalized Severity scale (1-10): 0 Consistency: intermittent Improves with: rest Worsens with: movement Associated Symptoms: nausea/vomiting, other (lightheaded) - Related Data Home Medications Medication Instructions Recorded Confirmed Fenofibrate Nanocrystallized 145 mg PO -BRKFST 03/29/15 11/15/21 [Tricor] Metoprolol Tartrate 25 mg PO -BRKT 03/29/15 11/15/21 Latanoprost/Pf [Latanoprost 0.005% 1 drop LEFT EYE HS 03/08/18 11/15/21 Eye Drop] Rosuvastatin [Crestor] 20 mg PO HS 03/08/18 11/15/21 metFORMIN HCL [Glucophage] 1,000 mg PO -BRKFST 03/08/18 11/15/21 Dapagliflozin Propanediol [Farxiga] 10 mg PO PC-BRKFST 06/27/20 11/15/21 Furosemide [Lasix] 20 mg PO PC-BRKFST 06/27/20 11/15/21 Semaglutide [Ozempic] 1 mg SQ TH 06/27/20 11/15/21 Losartan Potassium [Cozaar] 100 mg PO PC-BRKFST 11/15/21 11/15/21 Previous Rx's Medication Instructions Recorded traMADol HCL [Ultram] 50 mg PO Q8HR PRN 3 Days #12 tab 04/20/22 Cephalexin [Keflex] 500 mg PO BID 7 Days #14 cap 04/07/22 Allergies Allergy/AdvReac Type Severity Reaction Status Date / Time ciprofloxacin [From Cipro] Allergy Rash/Hives Verified 04/07/22 14:37 ciprofloxacin HCl Allergy Rash/Hives Verified 04/07/22 14:37 [From Cipro] phenazopyridine HCl Allergy Rash/Hives Verified 04/07/22 14:37 [From Pyridium] stong pain medications Allergy Vomiting Uncoded 04/07/22 14:37 Review of Systems ROS Statement: Those systems with pertinent positive or pertinent negative responses have been documented in the HPI. ROS Other: All systems not noted in ROS Statement are negative. Past Medical History Past Medical History: Diabetes Mellitus, Eye Disorder, Hyperlipidemia, Hypertension, Osteoarthritis (OA) Additional Past Medical History / Comment(s): glaucoma, migraines, chronic bronchitis, type ii DM History of Any Multi-Drug Resistant Organisms: None Reported Past Surgical History: Orthopedic Surgery Additional Past Surgical History / Comment(s): kaitlynn foot surgery Past Anesthesia/Blood Transfusion Reactions: Motion Sickness Past Psychological History: Anxiety, Depression Smoking Status: Current every day smoker Past Alcohol Use History: Occasional Past Drug Use History: Marijuana - Past Family History Mother Family Medical History: Cancer General Exam Limitations: no limitations General appearance: alert, in no apparent distress Head exam: Present: atraumatic, normocephalic Eye exam: Absent: scleral icterus, conjunctival injection, periorbital swelling Neck exam: Present: full ROM. Absent: tenderness, meningismus Respiratory exam: Present: normal lung sounds bilaterally. Absent: respiratory distress, wheezes, rales, rhonchi, stridor, chest wall tenderness, accessory muscle use Cardiovascular Exam: Present: regular rate GI/Abdominal exam: Present: soft. Absent: distended, tenderness, guarding, rebound, rigid Extremities exam: Present: full ROM, normal capillary refill. Absent: tenderness, pedal edema Back exam: Present: normal inspection. Absent: tenderness, CVA tenderness (R), CVA tenderness (L), rash noted Neurological exam: Present: alert, oriented X3, normal gait Psychiatric exam: Present: normal affect, normal mood Skin exam: Present: warm, dry, normal color. Absent: cyanosis, diaphoretic, erythema, petechiae, pallor Course Vital Signs 04/07/22 04/07/22 14:38 19:00 Temperature 98.7 F Pulse Rate 98 86 Respiratory 18 18 Rate Blood Pressure 126/79 135/74 O2 Sat by Pulse 99 96 Oximetry EKG Findings - EKG Results: EKG: sinus rhythm (Ventricular rate 81, OK interval 0.109, QRS 0.104, QTC 0.420) Medical Decision Making - Medical Decision Making Patient presents with generalized weakness and body aches with one episode of vomiting today. Patient states that she does have a history of kidney cancer with left nephrectomy 2 years ago. She states she does undergo cystoscopies every 3 months to check for bladder cancer with last scope 2 months ago. Labs show magnesium 1.5, patient was given IV replacement. Urinalysis shows evidence of urinary tract infection, patient was given a gram of Rocephin in the ER. Patient has been afebrile. No nausea or vomiting in the emergency room. Vital signs are stable Patient's symptoms are likely related to her urinary tract infection. She was given a prescription for Keflex directed to follow up with her primary care doctor and urologist next week. She is agreeable to this plan of care. Case was discussed with Dr. Schreiber. - Lab Data Result diagrams: 04/07/22 16:33 04/07/22 16:33 Lab Results 04/07/22 04/07/22 04/07/22 Range/Units 16:33 16:33 16:33 WBC 9.4 (3.8-10.6) k/uL RBC 4.12 (3.80-5.40) m/uL Hgb 13.6 (11.4-16.0) gm/dL Hct 41.1 (34.0-46.0) % MCV 99.8 (80.0-100.0) fL MCH 33.0 (25.0-35.0) pg MCHC 33.0 (31.0-37.0) g/dL RDW 13.1 (11.5-15.5) % Plt Count 272 (150-450) k/uL MPV 8.7 Neutrophils % 73 % Lymphocytes % 21 % Monocytes % 3 % Eosinophils % 2 % Basophils % 1 % Neutrophils # 6.8 (1.3-7.7) k/uL Lymphocytes # 1.9 (1.0-4.8) k/uL Monocytes # 0.3 (0-1.0) k/uL Eosinophils # 0.2 (0-0.7) k/uL Basophils # 0.1 (0-0.2) k/uL Sodium 138 (137-145) mmol/L Potassium 3.6 (3.5-5.1) mmol/L Chloride 99 (98-107) mmol/L Carbon Dioxide 23 (22-30) mmol/L Anion Gap 16 mmol/L BUN 15 (7-17) mg/dL Creatinine 1.14 H (0.52-1.04) mg/dL Est GFR (CKD-EPI)AfAm 58 (>60 ml/min/1.73 sqM) Est GFR (CKD-EPI)NonAf 51 (>60 ml/min/1.73 sqM) Glucose 125 H (74-99) mg/dL Calcium 10.6 H (8.4-10.2) mg/dL Magnesium 1.5 L (1.6-2.3) mg/dL Total Bilirubin 0.5 (0.2-1.3) mg/dL AST 81 H (14-36) U/L ALT 50 H (4-34) U/L Alkaline Phosphatase 46 (38-126) U/L Troponin I <0.012 (0.000-0.034) ng/mL Total Protein 7.3 (6.3-8.2) g/dL Albumin 4.9 (3.5-5.0) g/dL Urine Color Urine Appearance (Clear) Urine pH (5.0-8.0) Ur Specific Rudolph (1.001-1.035) Urine Protein (Negative) Urine Glucose (UA) (Negative) Urine Ketones (Negative) Urine Blood (Negative) Urine Nitrite (Negative) Urine Bilirubin (Negative) Urine Urobilinogen (<2.0) mg/dL Ur Leukocyte Esterase (Negative) Urine RBC (0-5) /hpf Urine WBC (0-5) /hpf Ur Squamous Epith Cells (0-4) /hpf Urine Mucus (None) /hpf Coronavirus (PCR) (Not Detectd) 04/07/22 04/07/22 Range/Units 16:52 16:52 WBC (3.8-10.6) k/uL RBC (3.80-5.40) m/uL Hgb (11.4-16.0) gm/dL Hct (34.0-46.0) % MCV (80.0-100.0) fL MCH (25.0-35.0) pg MCHC (31.0-37.0) g/dL RDW (11.5-15.5) % Plt Count (150-450) k/uL MPV Neutrophils % % Lymphocytes % % Monocytes % % Eosinophils % % Basophils % % Neutrophils # (1.3-7.7) k/uL Lymphocytes # (1.0-4.8) k/uL Monocytes # (0-1.0) k/uL Eosinophils # (0-0.7) k/uL Basophils # (0-0.2) k/uL Sodium (137-145) mmol/L Potassium (3.5-5.1) mmol/L Chloride (98-107) mmol/L Carbon Dioxide (22-30) mmol/L Anion Gap mmol/L BUN (7-17) mg/dL Creatinine (0.52-1.04) mg/dL Est GFR (CKD-EPI)AfAm (>60 ml/min/1.73 sqM) Est GFR (CKD-EPI)NonAf (>60 ml/min/1.73 sqM) Glucose (74-99) mg/dL Calcium (8.4-10.2) mg/dL Magnesium (1.6-2.3) mg/dL Total Bilirubin (0.2-1.3) mg/dL AST (14-36) U/L ALT (4-34) U/L Alkaline Phosphatase (38-126) U/L Troponin I (0.000-0.034) ng/mL Total Protein (6.3-8.2) g/dL Albumin (3.5-5.0) g/dL Urine Color Light Yellow Urine Appearance Cloudy H (Clear) Urine pH 6.0 (5.0-8.0) Ur Specific Rudolph 1.012 (1.001-1.035) Urine Protein Trace H (Negative) Urine Glucose (UA) 4+ H (Negative) Urine Ketones Negative (Negative) Urine Blood Negative (Negative) Urine Nitrite Positive H (Negative) Urine Bilirubin Negative (Negative) Urine Urobilinogen <2.0 (<2.0) mg/dL Ur Leukocyte Esterase Large H (Negative) Urine RBC 4 (0-5) /hpf Urine WBC 23 H (0-5) /hpf Ur Squamous Epith Cells 4 (0-4) /hpf Urine Mucus Rare H (None) /hpf Coronavirus (PCR) Not Detected (Not Detectd) Disposition Clinical Impression: UTI (urinary tract infection), Hypomagnesemia Disposition: HOME SELF-CARE Condition: Good Instructions (If sedation given, give patient instructions): Urinary Tract Infection in Women (ED) Additional Instructions: Increase your fluid intake. Take the antibiotics as prescribed. Follow-up with your urologist next week for reevaluation. Return to the emergency room with any new or concerning symptoms including pain, persistent nausea vomiting or fevers. Prescriptions: Cephalexin [Keflex] 500 mg PO BID 7 Days #14 cap Is patient prescribed a controlled substance at d/c from ED?: No Referrals: Lenin Duran DO [Primary Care Provider] - 1-2 days Time of Disposition: 18:40
--- NOTE | 2022-04-07 16:27 | XR ---
EXAMINATION TYPE: XR chest 2V DATE OF EXAM: 04/07/2022 COMPARISON: NONE HISTORY: Weakness TECHNIQUE: 2 views FINDINGS: Heart and mediastinum are normal. Lungs are clear. Diaphragm is normal. Bony thorax is inta ct. No pleural effusion. IMPRESSION: No active cardiopulmonary disease. Normal heart
[2022-04-07 16:43] LABS: Basophils # (A) 0.1 k/uL (0-0.2); Basophils % (A) 1 %; Eosinophils # (A) 0.2 k/uL (0-0.7); Eosinophils % (A) 2 %; HCT 41.1 % (34.0-46.0); HGB 13.6 gm/dL (11.4-16.0); Lymphocytes # (A) 1.9 k/uL (1.0-4.8); Lymphocytes % (A) 21 %; MCV 99.8 fL (80.0-100.0); Mean Platelet Volume 8.7; Monocytes # (A) 0.3 k/uL (0-1.0); Monocytes % (A) 3 %; Neutrophils # (A) 6.8 k/uL (1.3-7.7); Neutrophils % (A) 73 %; Platelet Count 272 k/uL (150-450); RBC 4.12 m/uL (3.80-5.40); RDW 13.1 % (11.5-15.5); WBC 9.4 k/uL (3.8-10.6)
[2022-04-07 16:58] LABS: Albumin 4.9 g/dL (3.5-5.0); Calcium 10.6 mg/dL (8.4-10.2); Magnesium 1.5 mg/dL (1.6-2.3); Potassium 3.6 mmol/L (3.5-5.1); Total Bilirubin 0.5 mg/dL (0.2-1.3); Total Protein 7.3 g/dL (6.3-8.2)
[2022-04-07 17:37] LABS: Appearance,Urine Cloudy (Clear); Bilirubin,Urine Negative (Negative); Blood,Urine Negative (Negative); Color,Urine Light Yellow; Glucose,Urine (UA) 4+ (Negative); Ketones,Urine Negative (Negative); Leukocyte Esterase,Urine Large (Negative); Mucus,Urine Rare /hpf; Nitrite,Urine Positive (Negative); Protein,Urine Trace (Negative); RBC,Urine 4 /hpf (0-5); Specific Gravity,Urine 1.012 (1.001-1.035); Squamous Epithelial Cell,Urine 4 /hpf (0-4); Urobilinogen,Urine <2.0 mg/dL (<2.0); WBC,Urine 23 /hpf (0-5)
[2022-04-07] MEDS ORDERED: Magnesium Replacement Protocol 1 EACH MISC MISCELLANE PRN (17:44)
[2022-04-07] MEDS ORDERED: cefTRIAXone IN SWFI 1,000 MG/10 ML SYRINGE IVP STA (17:45)
[2022-04-07] MEDS: MAGNESIUM SULFATE-D5W PMX 1 GM in DEXTROSE/WATER 1 100ML.BAG IVPB SCH ×2 (18:06→19:18)
[2022-04-07 19:11] VITALS: BP 135/74; PULSE 86
== END 2022-04-07 20:36 | disposition home or self-care (01) ==
LOC: EC 14:05
DX: N39.0 Urinary tract infection, site not specified (principal); E83.42 Hypomagnesemia; E11.9 Type 2 diabetes mellitus without complications; E78.5 Hyperlipidemia, unspecified; I10 Essential (primary) hypertension; F17.200 Nicotine dependence, unspecified, uncomplicated; Z20.822 Contact with and (suspected) exposure to COVID-19; Z88.8 Allergy status to other drugs, medicaments and biological substances; Z88.6 Allergy status to analgesic agent
CPT/HCPCS: 36415; 93005; 80053; 83735; 84484; 85025; 81001; 87086; 87635; 71046; 99285; 96365; 96375; 96361; J0696; J3475

== ENCOUNTER → 2022-05-01 | Outpatient (CLI) | payer MEDICARE, BC ==
--- NOTE | 2022-05-31 07:48 | P.CEMON ---
21 day event monitor shows sinus rhythm with intermittent PVCs No sustained tachy or maya arrhythmias
--- NOTE | 2022-06-01 09:19 | EM ---
21 day event monitor shows sinus rhythm with intermittent PVCs No sustained tachy or maya arrhythmias MTDD
== END | disposition home or self-care (01) ==
LOC: RADECHMAIN 12:19
PROVIDERS: ATTEND Family Medicine
DX: R55 Syncope and collapse (principal)
CPT/HCPCS: 93270

== ENCOUNTER → 2022-06-06 | Outpatient (CLI) | payer MEDICARE, BC ==
--- NOTE | 2022-06-06 15:49 | XR ---
EXAMINATION TYPE: XR chest 2V DATE OF EXAM: 06/06/2022 COMPARISON: 04/07/22 HISTORY: Shortness of breath TECHNIQUE: Frontal and lateral views of the chest are obtained. FINDINGS: Scattered senescent parenchymal changes noted. Hyperinflation compatible with COPD. No evidence for infiltrate. No evidence for atelectasis. Heart size is stable. Mediastinal structures are stable and grossly unremarkable. No evidence for hilar prominence. Degenerative changes dorsal spine. IMPRESSION: 1. No evidence for acute pulmonary disease.
== END | disposition home or self-care (01) ==
LOC: RADCTMAIN 15:04
PROVIDERS: ATTEND Urology
DX: C67.9 Malignant neoplasm of bladder, unspecified (principal)
CPT/HCPCS: 71046; 82565; 84520

== ENCOUNTER → 2022-06-27 | Outpatient (CLI) | payer MEDICARE, BC ==
--- NOTE | 2022-06-27 17:04 | CT ---
EXAMINATION TYPE: CT abdomen pelvis wo con CT DLP: 1012 mGycm, Automated exposure control for dose reduction was used. DATE OF EXAM: 06/27/2022 4:52 PM COMPARISON: CT abdomen pelvis most recent from 12/06/2020 CLINICAL INDICATION:Female, 66 years old with history of C64.2; hx of left nephrectomy Jun 2020 and [place] ca. poss Rt kidney issues TECHNIQUE: Axial CT of the abdomen and pelvis. Sagittal and coronal reformats were created on a [employer] workstation. Contrast used: None Oral contrast used: without Oral Contrast FINDINGS: LOWER CHEST: Atherosclerosis of the coronary arteries visualized. ABDOMEN LIVER: Unremarkable GALLBLADDER AND BILE DUCTS: Gallstone layering in the gallbladder. PANCREAS: Unremarkable. SPLEEN: Unremarkable. ADRENAL GLANDS: Unremarkable. KIDNEYS AND URETERS: The left kidney is surgically absent. No evidence of abnormal soft tissue in the surgical bed. The right kidney demonstrates no evidence of obstructive uropathy or renal calculus. M ild fat stranding changes around the right kidney. PELVIS BLADDER: Unremarkable REPRODUCTIVE: Unremarkable. ABDOMEN & PELVIS STOMACH AND BOWEL: No evidence of bowel obstruction. The appendix is visualized and is normal. Few sc attered clonic diverticula present. PERITONEUM: No evidence of pneumoperitoneum or free fluid. VASCULATURE: No evidence of aortic aneurysm. Atherosclerosis of the arterial vasculature. Infrarenal aortic dilation up to 2.5 cm. This is unchanged from prior. MUSCULOSKELETAL: No acute osseous abnormalities, mild multilevel disc degeneration changes throughout the spine with degeneration of the sacroiliac joints and the hips. LYMPH NODES: No gross evidence for lymphadenopathy. SOFT TISSUE/ABDOMINAL WALL: Fat-containing ventral hernia measuring 3.1 cm at the neck. Fat-containin g umbilical hernia. IMPRESSION: 1. Mild Fat stranding changes on the right kidney. These are nonspecific findings. Correlate with ur inalysis. No obstructive uropathy or calculus identified. 2. Left nephrectomy without evidence of recurrence or metastatic disease.
== END | disposition home or self-care (01) ==
LOC: RADCTMAIN 16:26
PROVIDERS: ATTEND Urology
DX: C64.2 Malignant neoplasm of left kidney, except renal pelvis (principal); Z90.5 Acquired absence of kidney
CPT/HCPCS: 74176

== ENCOUNTER → 2023-06-18 | Outpatient (CLI) | payer MEDICARE, BC ==
--- NOTE | 2023-06-20 00:04 | MM ---
Reason for Exam: Screening (asymptomatic). Last mammogram was performed 2 year(s) and 1 month(s) ago. Patient History: Menarche at age 12. First Full-Term at age 36. Late child-bearing (after 30). Postmenopausal. Patient has history of breast feeding. Risk Values: Taya 5 year model risk: 2.3%. NCI Lifetime model risk: 7.9%. Prior Study Comparison: 02/19/2017 Bilateral Screening Mammogram, [facility]. 05/04/2019 Bilateral Screening Mammogram, [facility]. 05/19/2021 Bilateral Screening Mammogram, [facility]. Tissue Density: The breast tissue is heterogeneously dense. This may lower the sensitivity of mammography. Findings: Analyzed By CAD. Benign oil cyst calcifications on both sides. There is no suspicious group of microcalcifications or new suspicious mass in either breast. Overall Assessment: Benign, BI-RAD 2 Management: Screening Mammogram of both breasts in 1 year. . Patient should continue monthly self-breast exams. A clinical breast exam by your physician is recommended on an annual basis. This exam should not preclude additional follow-up of suspicious palpable abnormalities. Note on Taya scores and lifetime risk: 1. A Taya score greater than 3% is considered moderate risk. If this is the case, consider specialist referral to assess eligibility for a risk reducing agent. 2. If overall lifetime risk for the development of breast cancer is 20% or higher, the patient may qualify for future screening with alternating mammogram and breast MRI. Electronically signed and approved by: Greg Barry M.D. Radiologist
== END | disposition home or self-care (01) ==
LOC: RADMAMWWP 15:38
PROVIDERS: ATTEND Family Medicine
DX: Z12.31 Encounter for screening mammogram for malignant neoplasm of breast (principal); Z78.0 Asymptomatic menopausal state
CPT/HCPCS: 77063; 77067

== ENCOUNTER → 2024-01-29 | Outpatient (CLI) | payer MEDICARE, BC ==
--- NOTE | 2024-01-29 16:17 | US ---
EXAMINATION TYPE: US kidneys/renal and bladder DATE OF EXAM: 01/29/2024 COMPARISON: CT 2021 CLINICAL INDICATION: Female, 68 years old with history of N18.30 CHRONIC KIDNEY DISEASE, STAGE 3 UNSP ECIFIED; EXAM MEASUREMENTS: Right Kidney: 13.6 x 6.7 x 6.2 cm Right Kidney: No hydronephrosis or masses seen Left Kidney: surgically absent Bladder: wnl Right Jet seen: yes There is no evidence for hydronephrosis at this point in time. No nephrolithiasis is seen. No gianna s are identified. Right kidney demonstrates maintained cortical medullary differentiation. Left kidne y is surgically absent. No ultrasound evidence for abnormality within the nephrectomy bed. The urinar y bladder is anechoic. The right ureteral jet identified. IMPRESSION: 1. No hydronephrosis or nephrolithiasis. 2. Post left nephrectomy changes.
== END | disposition home or self-care (01) ==
LOC: RADUSWWP 15:42
PROVIDERS: ATTEND Family Medicine
DX: N18.30 Chronic kidney disease, stage 3 unspecified (principal); Z90.5 Acquired absence of kidney
CPT/HCPCS: 76770